=== PATIENT | female | born 1935 | race Caucasian/White ===

== ENCOUNTER 2025-01-27 14:14 | Inpatient (IN) ==
[2025-01-27] MEDS: ASPIRIN CHEWABLE PO STA (14:25)
--- NOTE | 2025-01-27 14:25 | ED.PDOC ---
General [facility] ED Provider: Dr. GRACE SAWANT MD Chief Complaint: Shortness of Air Stated Complaint: Patient presents to ER from PCP clinic accompanied by her granddaughter complaining of worsening shortness of breath and right-sided chest pain. Reports onset was earlier today. States that she was sitting in the waiting room of PCP clinic when she felt a sudden hot flash. Says that she felt like her heart was fluttering and having right sided chest/shoulder pain. Said this made it difficult to breathe. Patient's granddaughter said that she was seen by PCP who immediately told her to go to ER for further workup. Of note, patient has a history of A-fib for which she takes Eliquis 2.5 twice daily she also has a PPM. However she recently moved to the area from [place] to be closer to family. Time Seen by Provider: 01/27/25 14:21 Mode of Arrival: Walk-In Information Source: Patient and Family (Patient's granddaughter) Exam Limitations: No limitations Nursing and Triage Documentation Reviewed and Agree: Yes Opioid Naive vs. Tolerant What is Opioid Naive?: *Opioid Naive implies the patient is not already taking opioids or not chronically receiving opioids on a daily basis. *PRN dosing is not "usually" associated with tolerance. *Patients are at higher risk of over-sedation and aspiration. What is Opioid Tolerant?: *Opioid Tolerance implies less than the expected response to an opioid. *Acquired tolerance is defined by the patient taking 60mg of oral morphine daily (or equianalgesic dose of another opioid) for 1 week or more. *Often associated with chronic pain. *May take more than usual dose to achieve desired pain control. Review of Systems Review Of Systems Constitutional: Reports No symptoms All Other Systems: Reviewed and Negative (Except for those listed in the HPI above.) [facility] Medical History Pacemaker Z95.0 - Presence of cardiac pacemaker (ICD-10) Hypertension I10 - Essential (primary) hypertension (ICD-10) A-fib I48.91 - Unspecified atrial fibrillation (ICD-10) Family History Other No known health problems Social History Smoking and tobacco status: Never smoker Alcohol intake: never Surgical History History of hysterectomy Z90.710 - Acquired absence of both cervix and uterus (ICD-10) History of hip replacement Z96.649 - Presence of unspecified artificial hip joint (ICD-10) Physical Exam Physical Exam Appearance: Reports Well-appearing, No pain distress and Well-nourished Ill-appearing: None Pain Distress: None Eyes: Reports KIRILL and EOMI ENT: Reports Ears normal and Nose normal Neck: Supple Respiratory: Reports Airway patent, Breath sounds equal, Breath sounds diminished and Respirations nonlabored Cardiovascular: Reports RRR, Pulses normal, No rub and No murmur GI/: Reports Soft and Nontender Musculoskeletal: Reports Normal strength, ROM intact and Other (Tenderness to palpation of right anterior glenohumeral joint line.) Skin: Reports Warm, Dry and Normal color Neurological: Reports Sensation intact, Motor intact, Alert and Oriented Psychiatric: Reports Affect appropriate and Mood appropriate Interpretation EKG Interpretation EKG Interpretation By: ED Physician Time of EKG #1: 14:20 Rate: Tachy Rhythm: Other (A flutter) [place]: Left Interpretation: A flutter with variable AV block, LAD, no STEMI Radiology Interpretation Radiology Interpretation By: ED Physician Radiology Results: Negative Exam Interpreted: CXR Xray Comments: No acute cardiopulmonary process interpreted by me. Course Course 01/27/25 14:40 01/27/25 14:43 Orders, Labs, Meds: Lab Review 01/27/25 01/27/25 01/27/25 01:00 14:24 14:40 WBC 6.24 RBC 4.31 Hgb 12.9 Hct 43.1 MCV 100.0 H MCH 29.9 MCHC 29.9 L RDW Coeff of Lloyd 15.4 H Plt Count 216 Immature Gran % (Auto) 0.3 Neut % (Auto) 59.5 Lymph % (Auto) 29.6 Sunflower % (Auto) 7.2 Eos % (Auto) 2.6 Baso % (Auto) 0.8 Neut # (Auto) 3.7 Lymph # (Auto) 1.9 Sunflower # (Auto) 0.5 Eos # (Auto) 0.2 Baso # (Auto) 0.1 Immature Gran # (Auto) 0.0 Sodium Potassium Chloride Carbon Dioxide Anion Gap BUN Creatinine Estimated GFR (MDRD) BUN/Creatinine Ratio Glucose Lactic Acid Calcium Total Bilirubin AST ALT Alkaline Phosphatase Troponin I NT-Pro-B Natriuret Pep Total Protein Albumin Globulin Albumin/Globulin Ratio D-Dimer Urine Color Yellow Urine Clarity Clear Urine pH 5.5 Ur Specific Ethridge 1.010 Urine Protein Negative Urine Glucose (UA) Negative Urine Ketones Negative Urine Blood Negative Urine Nitrite Negative Urine Bilirubin Negative Urine Urobilinogen 0.2 Ur Leukocyte Esterase Negative Influ A Molecular Assay Negative by naat Influ B Molecular Assay Negative by naat SARS CoV-2 RNA Rapid FLY Negative 01/27/25 14:43 WBC RBC Hgb Hct MCV MCH MCHC RDW Coeff of Lloyd Plt Count Immature Gran % (Auto) Neut % (Auto) Lymph % (Auto) Sunflower % (Auto) Eos % (Auto) Baso % (Auto) Neut # (Auto) Lymph # (Auto) Sunflower # (Auto) Eos # (Auto) Baso # (Auto) Immature Gran # (Auto) Sodium 139.9 Potassium 4.14 Chloride 106.6 Carbon Dioxide 13.7 L Anion Gap 23.74 BUN 22.5 H Creatinine 1.12 Estimated GFR (MDRD) 46.00 BUN/Creatinine Ratio 20.08 Glucose 91.9 Lactic Acid 2.06 Calcium 9.54 Total Bilirubin 1.24 AST 26.0 ALT 15.7 Alkaline Phosphatase 96.7 Troponin I < 0.012 NT-Pro-B Natriuret Pep 2420 H Total Protein 7.21 Albumin 4.02 Globulin 3.19 Albumin/Globulin Ratio 1.26 D-Dimer 1230.44 H Urine Color Urine Clarity Urine pH Ur Specific [place]ridge Urine Protein Urine Glucose (UA) Urine Ketones Urine Blood Urine Nitrite Urine Bilirubin Urine Urobilinogen Ur Leukocyte Esterase Influ A Molecular Assay Influ B Molecular Assay SARS CoV-2 RNA Rapid FLY Orders Category Date Time Status ADMIT OBSERVATION [PLACE PATIENT OBSERVATION] .TO ADMISSION 01/27/25 17:52 Active MEDSURG (MONITORED BED) EKG-(ED ONLY) Stat CARDIO 01/27/25 14:21 Completed NPO REMINDER: IMAGING ONCE CARE 01/27/25 15:39 Completed TELEMETRY MONITORING TELE CARE 01/27/25 17:52 Active ED APPLY O2 .ONCE EMERGENCY 01/27/25 14:21 Active ED TRANSIT DRIVER APPLIED .ONCE EMERGENCY 01/27/25 14:21 Active BLOOD CULTURE Stat LAB 01/27/25 15:08 Received CBC W/ AUTO DIFF Stat LAB 01/27/25 14:40 Completed COMPREHENSIVE METABOLIC PANEL Stat LAB 01/27/25 14:43 Completed D-DIMER Stat LAB 01/27/25 14:43 Completed FLU A/B MOLECULAR Stat LAB 01/27/25 14:24 Completed LACTIC ACID Stat LAB 01/27/25 14:43 Completed NT-PROBNP(ED) Stat LAB 01/27/25 14:43 Completed SARS COV-2 RNA RAPID FLY Stat LAB 01/27/25 14:24 Completed TROPONIN I Stat LAB 01/27/25 14:43 Completed URINALYSIS C & S IF INDICATED Stat LAB 01/27/25 01:00 Completed Acetaminophen Meds 01/27/25 15:06 Discontinued 1,000 mg in 100 ml IV ONCE Aspirin [Aspirin Chewable] Meds 01/27/25 14:20 Discontinued 324 mg PO ONCE STA Iodixanol [Visipaque 320 mg/ml 100Ml] Meds 01/27/25 16:08 Discontinued 100 ml IVP ONCE ONE Morphine Sulfate [Morphine 2 mg/ml Syringe] Meds 01/27/25 15:11 Discontinued 2 mg IVP ONCE ONE Sodium Chloride 0.9% [Sodium Chloride] 1,000 ml Meds 01/27/25 14:21 Discontinued IV BOLUS CHEST, 1V AP ONLY Stat RADS 01/27/25 14:21 Completed CTA CHEST PE PROTOCOL Stat RADS 01/27/25 15:39 Completed Medications Generic Name Dose Route Start Last Admin Trade Name Freq PRN Reason Stop Dose Admin Acetaminophen 650 mg 01/27/25 19:42 Acetaminophen 325 Mg Tablet PO Q4H PRN Mild Pain Apixaban 2.5 mg 01/27/25 21:50 01/27/25 22:21 Apixaban 5 Mg Tab PO 2.5 mg BID INDIRA Administration Dronedarone 400 mg 01/28/25 09:00 Dronedarone Hydrochloride 400 Mg Tablet PO BID INDIRA Furosemide 20 mg 01/27/25 20:00 01/27/25 20:28 Furosemide Inj 20 Mg/2 Ml Vial IVP 20 mg Q8H INDIRA Administration Pantoprazole Sodium 40 mg 01/28/25 09:00 Pantoprazole Sodium 40 Mg Tablet.Dr GREENE QAM INDIRA Sodium Chloride 1 syr 01/27/25 21:00 01/27/25 20:28 0.9% Sodium Chloride 10 Ml Disp.Syrin IVF 1 syr Q8HR INDIRA Administration Venlafaxine HCl 37.5 mg 01/28/25 09:00 Venlafaxine Hcl 37.5 Mg Cap.Er.24h PO DAILY INDIRA Discontinued Medications Generic Name Dose Route Start Last Admin Trade Name Darrynq PRN Reason Stop Dose Admin Aspirin 324 mg 01/27/25 14:20 01/27/25 14:25 Aspirin 81 Mg Tab.Chew PO 01/27/25 14:21 324 mg ONCE STA Administration Sodium Chloride 1,000 mls @ 500 mls/hr 01/27/25 14:21 01/27/25 16:30 Sodium Chloride IV 01/27/25 16:20 Infused BOLUS ONE Infusion Acetaminophen 1,000 mg in 100 mls @ 400 mls/hr 01/27/25 15:06 01/27/25 15:12 Acetaminophen IV 01/27/25 15:20 400 mls/hr ONCE ONE Administration Iodixanol 100 ml 01/27/25 16:08 01/27/25 16:09 Iodixanol 320 Mg/Ml 100ml IVP 01/27/25 16:09 100 ml ONCE ONE Administration Morphine Sulfate 2 mg 01/27/25 15:11 01/27/25 15:15 Morphine Sulfate 2 Mg/Ml Syringe IVP 01/27/25 15:12 2 [place] [address] Diagnostic Imaging Diagnostic Imaging Report : [id number] Signed Patient: NAKUL MONTGOMERY Acct:[id number] Medical Record: [id number] : 1935 Loc: ED Room/Bed: Age/Sex: 89 / F ADM Status: REG ER Date of Service: 01/27/25 Ordering Physician: GRACE SAWANT MD Procedure(s): CHEST, 1V AP ONLY Report Number(s): [id number] Accession Number(s): [id number] cc: GRACE SAWANT MD EXAM: CHEST RADIOGRAPH (1 VIEW) TECHNIQUE: Frontal Chest Radiograph. HISTORY: Chest pain. COMPARISON: None FINDINGS: Lines, Tubes, Devices: Left-sided dual chamber pacemaker. Thoracic spinal cord stimulator Lungs and Pleura: No focal consolidation. No pleural effusion. No pneumothorax. No pulmonary edema. Cardiomediastinum: Normal cardiomediastinal silhouette. Moderate aortic calcifications. Bones/Soft Tissues: Multiple remote left rib fractures. No soft tissue abnormality. Upper Abdomen: Within normal limits. IMPRESSION: No acute radiographic abnormality. Dictated By: ANDREA GREENE DO Signed By: ANDREA GREENE DO Dictated Date/Time: 01/27/255 Transcribed Date/Time: 01/27/25 1455 Signed Date/Time: 01/27/[address] Report : [id number] Signed Patient: NAKUL MONTGOMERY Acct:[id number] Medical Record: [id number] : 1935 Loc: ED Room/Bed: Age/Sex: 89 / F ADM Status: REG ER Date of Service: 01/27/25 Ordering Physician: GRACE SAWANT MD Procedure(s): CTA CHEST PE PROTOCOL Report Number(s): [id number] Accession Number(s): [id number] cc: GRACE SAWANT MD EXAM: CHEST CTA WITH CONTRAST (PULMONARY ARTERY) HISTORY: Chest pain and shortness of breath. TECHNIQUE: CTA acquisition of the chest from the thoracic inlet to the upper abdomen following IV contrast administration timed to filling of the pulmonary artery. 3D/MIP/VR images were utilized. CT Dose Reduction Techniques Employed: Yes. IV Contrast: Administered. COMPARISON: None. FINDINGS: Pulmonary Embolism: Diagnostic quality: Adequate. Central (Main/Lobar/Interlobar): No embolus. Peripheral (Segmental/Subsegmental): No embolus. Right ventricle/Left ventricle ratio: Normal. Lines, Tubes, Devices: None. Lung Parenchyma and Airways: Central airways are patent without endobronchial lesion. Mild bronchiectasis. Course interstitial markings in the lower lobes consistent with scarring. No suspicious pulmonary nodule. Mild scattered groundglass densities. Pleural Space: No pleural effusion or thickening. No pneumothorax. Mediastinum and Maru: Thyroid gland is normal. No lymphadenopathy. Heart and Pericardium: There is no pericardial effusion or thickening. The heart is mildly enlarged. Vessels: The thoracic aorta is of normal caliber. The pulmonary trunk is enlarged measuring 3.7 cm. Heavy atherosclerotic vascular disease. Tortuosity. Bones: There is no fracture or lytic lesion. [id number]-[id number] spondylosis and degenerative disc disease of the visualized lumbar spine. Spinal stimulation device in place. Mild levoscoliosis of the thoracic spine. Hemangioma of L3. Mild superior endplate central compression of L1. Soft Tissues: Spinal stimulation device battery pack in the left buttock soft tissues. Upper Abdomen: Multiple bilateral renal cortical cysts. Reflux of contrast into the inferior vena cava and hepatic veins. IMPRESSION: 1. Normal CT pulmonary angiogram with no evidence of pulmonary artery embolism. 2. Coarse interstitial markings in the lower lobes consistent with scarring. Mild scattered groundglass densities and bronchiectasis. 3. The pulmonary trunk is enlarged consistent with pulmonary hypertension. There is reflux of contrast into the inferior vena cava pulmonary veins consistent with right heart failure. 4. Moderate spondylosis and degenerative disc disease. 5. Renal cortical cysts. All CT scans are performed using dose optimization techniques as appropriate to the performed exam and include at least one of the following: Automated exposure control, adjustment of the mA and/or kV according to size, and the use of iterative reconstruction technique. Dictated By: ANA MARIA CISNEROS MD Signed By: ANA MARIA CISNEROS MD Dictated Date/Time: 01/27/252 Transcribed Date/Time: 01/27/25 165 Signed Date/Time: 01/27/25 1715 Vital Signs: Temp Pulse Resp BP Pulse Ox 01/27/25 14:22 98.2 F 136 H 20 133/78 93 L 17:30 - Spoke with on-call hospitalist (Maksim Arroyo NP) regarding patient's status and current workup and management for CHF exacerbation. Reviewed remarkable labs of pro BNP 2420, d-dimer [address] achest PE protocol remarkable for signs of right heart failure/pulmonary hypertension. Agreed to accept patient for further workup and management. Discharge Plan Discharge Patient Disposition: PLACED OBSERVATION Discharge Problem: CHF exacerbation Did you review [place] [employer] for ALL controlled substances?: Not Applicable ED Provider: GRACE SAWANT Condition: Stable
[2025-01-27] MEDS: SODIUM CHLORIDE 1,000 ML IV ONE (14:26)
[2025-01-27 14:50] LABS: IMMATURE GRANULOCYTE # (AUTO) 0.0 (0.0-1.0); IMMATURE GRANULOCYTE % (AUTO) 0.3 % (0.0-5.0); RDW COEFFICIENT OF VARIATION 15.4 % (11.6-14.8)
--- NOTE | 2025-01-27 15:01 | DI ---
EXAM: CHEST RADIOGRAPH (1 VIEW) TECHNIQUE: Frontal Chest Radiograph. HISTORY: Chest pain. COMPARISON: None FINDINGS: Lines, Tubes, Devices: Left-sided dual chamber pacemaker. Thoracic spinal cord stimulator Lungs and Pleura: No focal consolidation. No pleural effusion. No pneumothorax. No pulmonary edema. Cardiomediastinum: Normal cardiomediastinal silhouette. Moderate aortic calcifications. Bones/Soft Tissues: Multiple remote left rib fractures. No soft tissue abnormality. Upper Abdomen: Within normal limits. IMPRESSION: No acute radiographic abnormality.
[2025-01-27 15:03] LABS: CREATININE 1.12 mg/dL (0.60-1.30)
[2025-01-27 15:08] LABS: MOLECULAR FLU A NEGATIVE BY NAAT (NEGATIVE); MOLECULAR FLU B NEGATIVE BY NAAT (NEGATIVE); SARS COV-2 RNA RAPID NAAT NEGATIVE (NEGATIVE)
[2025-01-27] MEDS: ACETAMINOPHEN 1,000 MG/100 ML BAG IV ONE (15:12)
[2025-01-27] MEDS: MORPHINE 2 MG/ML SYRINGE IVP ONE (15:15)
[2025-01-27] MEDS: VISIPAQUE 320 MG/ML 100ML IVP ONE (16:09)
--- NOTE | 2025-01-27 17:15 | CT ---
EXAM: CHEST CTA WITH CONTRAST (PULMONARY ARTERY) HISTORY: Chest pain and shortness of breath. TECHNIQUE: CTA acquisition of the chest from the thoracic inlet to the upper abdomen following IV contrast administration timed to filling of the pulmonary artery. 3D/MIP/VR images were utilized. CT Dose Reduction Techniques Employed: Yes. IV Contrast: Administered. COMPARISON: None. FINDINGS: Pulmonary Embolism: Diagnostic quality: Adequate. Central (Main/Lobar/Interlobar): No embolus. Peripheral (Segmental/Subsegmental): No embolus. Right ventricle/Left ventricle ratio: Normal. Lines, Tubes, Devices: None. Lung Parenchyma and Airways: Central airways are patent without endobronchial lesion. Mild bronchiectasis. Course interstitial markings in the lower lobes consistent with scarring. No suspicious pulmonary nodule. Mild scattered groundglass densities. Pleural Space: No pleural effusion or thickening. No pneumothorax. Mediastinum and Maru: Thyroid gland is normal. No lymphadenopathy. Heart and Pericardium: There is no pericardial effusion or thickening. The heart is mildly enlarged. Vessels: The thoracic aorta is of normal caliber. The pulmonary trunk is enlarged measuring 3.7 cm. Heavy atherosclerotic vascular disease. Tortuosity. Bones: There is no fracture or lytic lesion. Flzc-el-[id number] spondylosis and degenerative disc disease of the visualized lumbar spine. Spinal stimulation device in place. Mild levoscoliosis of the thoracic spine. Hemangioma of L3. Mild superior endplate central compression of L1. Soft Tissues: Spinal stimulation device battery pack in the left buttock soft tissues. Upper Abdomen: Multiple bilateral renal cortical cysts. Reflux of contrast into the inferior vena cava and hepatic veins. IMPRESSION: 1. Normal CT pulmonary angiogram with no evidence of pulmonary artery embolism. 2. Coarse interstitial markings in the lower lobes consistent with scarring. Mild scattered groundglass densities and bronchiectasis. 3. The pulmonary trunk is enlarged consistent with pulmonary hypertension. There is reflux of contrast into the inferior vena cava pulmonary veins consistent with right heart failure. 4. Moderate spondylosis and degenerative disc disease. 5. Renal cortical cysts. All CT scans are performed using dose optimization techniques as appropriate to the performed exam and include at least one of the following: Automated exposure control, adjustment of the mA and/or kV according to size, and the use of iterative reconstruction technique.
[2025-01-27] MEDS ORDERED: TYLENOL PO PRN (19:42)
[2025-01-27] MEDS: LASIX IVP SCH (20:28)
[2025-01-27 20:40] VITALS: BMI 19.6
[2025-01-27] MEDS: ELIQUIS PO SCH (22:21)
[2025-01-28 01:18] LABS: GLUCOSE, URINE (UA) Negative (NEGATIVE); LEUKOCYTE ESTERASE ,URINE Negative (NEGATIVE); URINE, BLOOD Negative (NEGATIVE)
[2025-01-28 05:33] LABS: IMMATURE GRANULOCYTE # (AUTO) 0.0 (0.0-1.0); IMMATURE GRANULOCYTE % (AUTO) 0.2 % (0.0-5.0); RDW COEFFICIENT OF VARIATION 15.3 % (11.6-14.8)
[2025-01-28 05:45] LABS: CREATININE 1.23 mg/dL (0.60-1.30)
[2025-01-28] MEDS: PROTONIX PO SCH (08:21)
[2025-01-28] MEDS: EFFEXOR XR PO SCH (08:22)
[2025-01-28] MEDS: LOPRESSOR IVP ONE ×2 (08:37→20:00)
[2025-01-28] MEDS: MULTAQ PO SCH (09:50)
[2025-01-28] MEDS: TOPROL XL PO SCH (10:08)
--- NOTE | 2025-01-28 10:59 | PCM ---
Date of Service Date Seen by Provider: 01/28/25 Time Seen by Provider: 09:00 Admit Day/Time Admission Date: 01/27/25 Reason for Admission Chief Complaint: HEART FAILURE EXACERBATION Hospital Provider Hospital [facility] Primary Care Physician: ESTEPHANIE MERCHANT History of Present Illness History of Present Illness: 89 yo female with pmh of combined CHF, afib, htn, and HOCM presented to the ER following a fall. Patient states she has been having multiple falls at home and does not recall when they happen. Denies any injury but is sore this am. Patient is new to the area from [place] and was at Dr. Merchant's office to be seen for new patient visit and was sent to the ER. Patient was found to have HR of 136. BNP elevated at 2420 (unsure of baseline). D-dimer elevated. CTA obtained showing right sided heart failure. Denies any sob or edema at home. Granddaughter who is her caregiver at this time is an RN and reports that she only takes lasix as needed and has not taken it for quite some time. Daily weights have been normal. Of note, patient was admitted to [facility] on 01/03/25 for syncope. Found to have KETURAH and orthostasis. Metoprolol was stopped during that visit and patient was also started on midodrine due to continued orthostasis despite hydration. Patient was then discharged to [facility] for rehab. Granddaughter reports she did not receive the therapy she needed and continues to be weak at this time thus causing the fall and repeat admission in less than a month. This am patient's HR jumped to 130s-150s in Afib RVR. Patient became symptomatic with dizziness and chest pain. She was given a dose of lopressor 2.5 mg IVP and HR as normalized. She typically takes multaq but this facility does not carry it and am unsure when her last dose was. Started metoprolol succinate 25 mg due to lack of home medication here. Case Discussed With Case Discussed With: Patient's case was discussed with the ER Physicians, Dr. Workman. [facility] Medical History (Updated 01/28/25 @ 11:37 by MICHAEL AYON) CVA (cerebral vascular accident) I63.9 - Cerebral infarction, unspecified (ICD-10) Chronic combined systolic (congestive) and diastolic (congestive) heart failure I50.42 - Chronic combined systolic (congestive) and diastolic (congestive) heart failure (ICD-10) GERD (gastroesophageal reflux disease) K21.9 - Gastro-esophageal reflux disease without esophagitis (ICD-10) ASCVD (arteriosclerotic cardiovascular disease) I25.10 - Atherosclerotic heart disease of [place] coronary artery without angina pectoris (ICD-10) HOCM (hypertrophic obstructive cardiomyopathy) I42.1 - Obstructive hypertrophic cardiomyopathy (ICD-10) Pacemaker Z95.0 - Presence of cardiac pacemaker (ICD-10) Hypertension I10 - Essential (primary) hypertension (ICD-10) A-fib I48.91 - Unspecified atrial fibrillation (ICD-10) Surgical History History of hysterectomy Z90.710 - Acquired absence of both cervix and uterus (ICD-10) History of hip replacement Z96.649 - Presence of unspecified artificial hip joint (ICD-10) Family History Other No known health problems Social History Smoking and tobacco status: Never smoker Alcohol intake: never Allergies Allergies Allergy/AdvReac Type Severity Reaction Status Date / Time No Known Allergies Allergy Verified 01/02/25 05:11 Current Medications Home Medications Acetaminophen (Acetaminophen 325 Mg Tablet) 650 mg PO Q4H PRN PRN Reason: Mild Pain Apixaban (Apixaban 5 Mg Tab) 2.5 mg PO BID [facility] Last Admin: 01/28/25 08:21 Dose: 2.5 mg Dronedarone (Dronedarone Hydrochloride 400 Mg Tablet) 400 mg PO BID [facility] On Hold: 01/28/25 09:44 Last Admin: 01/28/25 09:50 Dose: Not Given Metoprolol Succinate (Metoprolol Succinate 25 Mg Tab.Er.24h) 25 mg PO DAILY [facility] Last Admin: 01/28/25 10:08 Dose: 25 mg Pantoprazole Sodium (Pantoprazole Sodium 40 Mg Tablet.Dr) 40 mg PO QDAC2 [facility] Last Admin: 01/28/25 08:21 Dose: 40 mg Sodium Chloride (0.9% Sodium Chloride 10 Ml Disp.Syrin) 1 syr IVF Q8HR [facility] Last Admin: 01/28/25 04:43 Dose: 1 syr Venlafaxine HCl (Venlafaxine Hcl 37.5 Mg Cap.Er.24h) 37.5 mg PO DAILY [facility] Last Admin: 01/28/25 08:22 Dose: 37.5 mg apixaban 5 mg tablet (Eliquis) 2.5 mg PO BID 01/02/25 [History Confirmed 01/27/25] Multaq 400 mg PO BID 01/27/25 [History Confirmed 01/27/25] pantoprazole 40 mg tablet,delayed release 40 mg PO QAM 01/27/25 [History Confirmed 01/27/25] venlafaxine 37.5 mg capsule,extended release 24 hr 37.5 mg PO DAILY 01/27/25 [History Confirmed 01/27/25] acetaminophen 325 mg capsule 650 mg PO QID PRN fever or pain 01/28/25 [History Confirmed 01/28/25] cholecalciferol (vitamin D3) 25 mcg (1,000 unit) capsule 25 mcg PO DAILY 07/24 [History Confirmed 01/28/25] furosemide 40 mg tablet (Lasix) 20 mg PO DAILY PRN edema 01/28/25 [History Confirmed 01/28/25] metoprolol tartrate 25 mg tablet 12.5 mg PO BID 01/28/25 [History Confirmed 01/28/25] midodrine 5 mg tablet 5 mg PO TID 01/28/25 [History Confirmed 01/28/25] sodium bicarbonate 650 mg tablet 650 mg PO TID 01/28/25 [History Confirmed 01/28/25] Opioid Naive vs. Tolerant Does Patient Take Opioids?: No Is Patient Opioid Naive?: Yes What is Opioid Naive?: *Opioid Naive implies the patient is not already taking opioids or not chronically receiving opioids on a daily basis. *PRN dosing is not "usually" associated with tolerance. *Patients are at higher risk of over-sedation and aspiration. Is Patient Opioid Tolerant?: No What is Opioid Tolerant?: *Opioid Tolerance implies less than the expected response to an opioid. *Acquired tolerance is defined by the patient taking 60mg of oral morphine daily (or equianalgesic dose of another opioid) for 1 week or more. *Often associated with chronic pain. *May take more than usual dose to achieve desired pain control. Review of Systems Constitutional: Reports No symptoms Head: Reports Normocephalic Eyes: Reports No symptoms Ears: Reports No symptoms Nose: Reports No symptoms Mouth: Reports No symptoms Throat: Reports No symptoms Cardiovascular: Reports No symptoms and Irregular Heartbeat; Denies Chest pain or Chest Pressure Respiratory: Reports No symptoms; Denies Shortness of air Gastrointestinal: Reports No symptoms Genitourinary: Reports No Symptoms Musculoskeletal: Reports No symptoms Endocrine: Reports No symptoms Hematology: Reports No symptoms Immunology: Reports No symptoms Neurological: Reports Dizziness and Syncope Psychiatric: Reports No symptoms Physical examination Most Recent Vital Signs: Most Recent Vital Signs Temperature 97.5 F L 01/28/25 10:00 Temperature Source Temporal Artery Scan 01/28/25 10:00 Temperature Source Infrared 01/27/25 14:22 Pulse Rate 93 01/28/25 10:00 Respiratory Rate 14 01/28/25 10:00 Blood Pressure 112/75 01/28/25 10:00 Blood Pressure Mean 87 01/28/25 10:00 Blood Pressure Left Arm 153/95 01/27/25 20:13 Blood Pressure Location Right Arm 01/28/25 10:00 Blood Pressure Position Supine 01/28/25 10:00 O2 Sat by Pulse Oximetry 95 01/28/25 10:00 Oxygen Delivery Method Room Air 01/28/25 10:00 Height 5 ft 4 in 01/27/25 20:13 Weight 51.6 kg 01/28/25 05:31 Telemetry Type Remote Telemetry 01/28/25 07:00 Telemetry Monitoring Continues 01/28/25 07:00 Irregular Telemetry Rate (Approximate) 100-110 BPM 01/28/25 07:00 Telemetry Heart Rate 100 01/28/25 07:00 EKG QRS Interval 0.07 01/28/25 07:00 Telemetry Strip Reading A-fib 01/28/25 07:00 Appearance: Positive No Apparent Distress, Alert and Oriented x3 and Thin Skin: Positive Warm and Good Turgor HEENT: Positive Normocephalic and PERRLA Neck: Positive Supple and Midline Trachea Chest/Lungs: Positive Symmetrical With Equal Breath Sounds, Clear to Auscultation Bilaterally and Good Air Movement all 4 Lung Bryant; Negative Rales, Rhonci or Wheezes Heart: Positive Pulses Normal, Irregular Rhythm and Tachycardia GI/: Positive Soft, Nontender, Bowel Sounds Normal, No Distention and No Organomegaly Musculoskeletal: Positive Other (reddened area with small abrasions to R lower leg, splotchy areas, blanchable, negative julia's sign) and Not Examined Extremities: Positive Intact Peripheral Pulses, Stable Joints Without Laxity and Good ROM in All Joints Neurological: Positive Sensation Intact, Motor intact, Reflexes Intact, Alert, Oriented and Other (generalized weakness, debility) Labs This Visit Labs This Visit: Labs This Visit 01/27/25 01/27/25 01/27/25 01:00 14:24 14:40 WBC 6.24 RBC 4.31 Hgb 12.9 Hct 43.1 MCV 100.0 H MCH 29.9 MCHC 29.9 L RDW Coeff of Lloyd 15.4 H Plt Count 216 Immature Gran % (Auto) 0.3 Neut % (Auto) 59.5 Lymph % (Auto) 29.6 [place] % (Auto) 7.2 Eos % (Auto) 2.6 Baso % (Auto) 0.8 Neut # (Auto) 3.7 Lymph # (Auto) 1.9 [place] # (Auto) 0.5 Eos # (Auto) 0.2 Baso # (Auto) 0.1 Immature Gran # (Auto) 0.0 Sodium Potassium Chloride Carbon Dioxide Anion Gap BUN Creatinine Estimated GFR (MDRD) BUN/Creatinine Ratio Glucose Lactic Acid Calcium Total Bilirubin AST ALT Alkaline Phosphatase Troponin I NT-Pro-B Natriuret Pep Total Protein Albumin Globulin Albumin/Globulin Ratio D-Dimer Urine Color Yellow Urine Clarity Clear Urine pH 5.5 Ur Specific [place] 1.010 Urine Protein Negative Urine Glucose (UA) Negative Urine Ketones Negative Urine Blood Negative Urine Nitrite Negative Urine Bilirubin Negative Urine Urobilinogen 0.2 Ur Leukocyte Esterase Negative Influ A Molecular Assay Negative by naat Influ B Molecular Assay Negative by naat SARS CoV-2 RNA Rapid FLY Negative 01/27/25 01/28/25 14:43 05:26 WBC 9.05 RBC 4.77 Hgb 14.2 Hct 45.8 MCV 96.0 MCH 29.8 MCHC 31.0 L RDW Coeff of Lloyd 15.3 H Plt Count 239 Immature Gran % (Auto) 0.2 Neut % (Auto) 72.2 Lymph % (Auto) 17.9 [place] % (Auto) 7.2 Eos % (Auto) 2.1 Baso % (Auto) 0.4 Neut # (Auto) 6.5 Lymph # (Auto) 1.6 [place] # (Auto) 0.7 Eos # (Auto) 0.2 Baso # (Auto) 0.0 Immature Gran # (Auto) 0.0 Sodium 139.9 138.3 Potassium 4.14 3.93 Chloride 106.6 99.6 Carbon Dioxide 13.7 L 24.1 D Anion Gap 23.74 18.53 BUN 22.5 H 24.3 H Creatinine 1.12 1.23 Estimated GFR (MDRD) 46.00 41.00 BUN/Creatinine Ratio 20.08 19.75 Glucose 91.9 90.8 Lactic Acid 2.06 Calcium 9.54 9.42 Total Bilirubin 1.24 1.04 AST 26.0 27.4 ALT 15.7 18.9 Alkaline Phosphatase 96.7 96.7 Troponin I < 0.012 NT-Pro-B Natriuret Pep 2420 H Total Protein 7.21 7.47 Albumin 4.02 4.26 Globulin 3.19 3.21 Albumin/Globulin Ratio 1.26 1.32 D-Dimer 1230.44 H Urine Color Urine Clarity Urine pH Ur Specific [place] Urine Protein Urine Glucose (UA) Urine Ketones Urine Blood Urine Nitrite Urine Bilirubin Urine Urobilinogen Ur Leukocyte Esterase Influ A Molecular Assay Influ B Molecular Assay SARS CoV-2 RNA Rapid FLY Imaging Imaging: EXAM: CHEST CTA WITH CONTRAST (PULMONARY ARTERY) HISTORY: Chest pain and shortness of breath. TECHNIQUE: CTA acquisition of the chest from the thoracic inlet to the upper abdomen following IV contrast administration timed to filling of the pulmonary artery. 3D/MIP/VR images were utilized. CT Dose Reduction Techniques Employed: Yes. IV Contrast: Administered. COMPARISON: None. FINDINGS: Pulmonary Embolism: Diagnostic quality: Adequate. Central (Main/Lobar/Interlobar): No embolus. Peripheral (Segmental/Subsegmental): No embolus. Right ventricle/Left ventricle ratio: Normal. Lines, Tubes, Devices: None. Lung Parenchyma and Airways: Central airways are patent without endobronchial lesion. Mild bronchiectasis. Course interstitial markings in the lower lobes consistent with scarring. No suspicious pulmonary nodule. Mild scattered groundglass densities. Pleural Space: No pleural effusion or thickening. No pneumothorax. Mediastinum and Maru: Thyroid gland is normal. No lymphadenopathy. Heart and Pericardium: There is no pericardial effusion or thickening. The heart is mildly enlarged. Vessels: The thoracic aorta is of normal caliber. The pulmonary trunk is enlarged measuring 3.7 cm. Heavy atherosclerotic vascular disease. Tortuosity. Bones: There is no fracture or lytic lesion. Hpat-[id number] spondylosis and degenerative disc disease of the visualized lumbar spine. Spinal stimulation device in place. Mild levoscoliosis of the thoracic spine. Hemangioma of L3. Mild superior endplate central compression of L1. Soft Tissues: Spinal stimulation device battery pack in the left buttock soft tissues. Upper Abdomen: Multiple bilateral renal cortical cysts. Reflux of contrast into the inferior vena cava and hepatic veins. IMPRESSION: 1. Normal CT pulmonary angiogram with no evidence of pulmonary artery embolism. 2. Coarse interstitial markings in the lower lobes consistent with scarring. Mild scattered groundglass densities and bronchiectasis. 3. The pulmonary trunk is enlarged consistent with pulmonary hypertension. There is reflux of contrast into the inferior vena cava pulmonary veins consistent with right heart failure. 4. Moderate spondylosis and degenerative disc disease. 5. Renal cortical cysts. EXAM: CHEST RADIOGRAPH (1 VIEW) TECHNIQUE: Frontal Chest Radiograph. HISTORY: Chest pain. COMPARISON: None FINDINGS: Lines, Tubes, Devices: Left-sided dual chamber pacemaker. Thoracic spinal cord stimulator Lungs and Pleura: No focal consolidation. No pleural effusion. No pneumothorax. No pulmonary edema. Cardiomediastinum: Normal cardiomediastinal silhouette. Moderate aortic calcifications. Bones/Soft Tissues: Multiple remote left rib fractures. No soft tissue abnormality. Upper Abdomen: Within normal limits. IMPRESSION: No acute radiographic abnormality. Review Statement Review Statement: I have independently reviewed and interpreted the labs/EKGs/imaging that were ordered by the ER provider. I have reviewed all outside records that are available currently in our EMR including imaging/notes/labs from previous visits. Plan Plan: 1. Afib RVR - feel that multaq is not controlling afib rvr - holding at this time, start metoprolol succinate 25 mg daily, telemetry 2. Combined CHF - do not feel patient is in exacerbation, appears euvolemic, initially started diuresis based on ER providers description of patient, stopping at this time, I&O, daily weight, last echo 2022 with EF >70% consistent with hyperdynamic systolic function 3. Frequent Falls - feel this is due to uncontrolled afib and resulting in syncope, pt/ot to eval and treat, patient would likely benefit from further rehab due to 2 hospitalizations in less than a month. 4. Syncope - orthostatic vitals Q8H, will restart midodrine if orthostasis present, chilango [place], work-up completed at [facility] on 01/03 negative for other etiology. 5. GERD - chronic, continue home medications 6. CKD stage 3 - stable, continue home medications DVT Prophylaxis: Eliquis Time Spent: Greater than 80 minutes spent with patient, 50% of the time spent with this patient was devoted to counseling and coordination of care. [facility] Plannin minutes spent discussing advance care planning. Disposition: Admit to: Med/Surg Observation Full Code Discussed Plan of Care with Dr. Jodie Stark. Medications Medication Orders: Medications Ordered Category Date Time Status 0.9 % Sodium Chloride [Saline Flush] Meds 01/27/25 21:00 Active 1 syr IVF Q8HR Acetaminophen [Tylenol] Meds 01/27/25 19:42 Active 650 mg PO Q4H PRN Apixaban [Eliquis] Meds 01/27/25 21:50 Active 2.5 mg PO BID Dronedarone Hydrochloride [Multaq] Meds 01/28/25 09:00 Hold 400 mg PO BID Furosemide [Lasix] Meds 01/28/25 13:00 Active 20 mg IVP Q8HR Metoprolol Succinate [Toprol Xl] Meds 01/28/25 09:45 Active 25 mg PO DAILY Pantoprazole Sodium [Protonix] Meds 01/28/25 07:30 Active 40 mg PO QDAC2 Venlafaxine HCl [Effexor Xr] Meds 01/28/25 09:00 Active 37.5 mg PO DAILY
[2025-01-28] MEDS ORDERED: LASIX IVP SCH (13:00)
--- NOTE | 2025-01-28 15:00 | RS.OTINEVL ---
Subjective Patient information Date of Evaluation: 01/28/25 Date of Arrival on Unit: 01/27/25 Admitted From:: Emergency Dept Diagnosis: Heart failure exac., Weakness, PRECAUTIONS: fall risk Usual Living Arrangement: With Others Living Arrangement Comments: lives with son, will be moving to [facility]. Home Environment: Stairs (few) Medical History: CHF Medical History Comments:: Afib, SOA, Dizziness Medications: Refer to chart Subjective Information/ Patient Comments:: "I am short of breath." "I forgot." Level of function Prior to this admission, the patient could do the following:: Independent Selfcare, Independent ADL's, Independent Ambulation and Participated in Social Activities Outside home Abilities prior to this admission: Pt does not drive. Pt reports her son does her finances, and cooks. Current Level of Function: Partially Dependent Current Equipment Used at Home: walker and wheelchair Interventions Objective Patient Orientation: Person, Place, Time and Situation Current Interventions: Telemetry Observation: Pt is I with supine to sit EOB. Pt has full AROM of BUE. Pt is I with sitting to supine. Pt is CGA for sit to stand. Interventions ROM Right Upper Extremity AROM: WFL's Left Upper Extremity AROM: WFL's Strength Right Upper Extremity: Mild Weakness Left Upper Extremity: Mild Weakness Sensation Right Upper Extremity: Intact/Normal Left Upper Extremity: Intact/Normal Balance Sitting Balance Static Sitting Balance: Good Dynamic Sitting Balance: Good Standing Balance Static Standing Balance: Fair Dynamic Standing Balance: Fair ADL Skills Self Feeding Self Feeding: Independent Grooming Grooming: Min Assist Bathing Bathing UE: Min Assist Bathing LE: Max Assist Bathing Set-up: Sitting Dressing Dressing UE: Min Assist Dressing LE: Max Assist Toilet Management Toilet Hygiene: Independent Toilet Clothing Management: CGA Functional Mobility Bed Mobility Scooting: Independent Sit to Supine: Independent Transfers Sit to Stand: Independent Stand Pivot Transfers: CGA Ambulation Weight Bearing Status: FWB Assistive Device Used: Rolling Walker Assistance needed with Ambulation: Min Assist Safety Awareness Safety Awareness: Fair MARTÍN INDEX SCORE: . Additional Treatment Performed Additional units charged ADL: 15 Time with patient Length of Evaluation: 16 Total treatment time: 31 Activities Do you enjoy playing games?: Yes Would you be interested in leaving your room for activities?: Yes Would you enjoy group activities?: Yes Do you have difficulty with your vision?: Yes Patient Education Patient Education: Education of diagnosis Teaching Recipient: Patient Teaching Methods: Discussion Assessment Problem List:: Decreased level of function, Decreased safety/Risk of falls and Pain limits previous level of function Rehab Potential: Good Evaluation Complexity: HISTORY: Medium, EXAM OF BODY SYSTEMS: Medium and CLINICAL DECISION MAKING: Medium Patient's Goal(s): To get stronger and return home. Short Term Goals Goals GOAL 1: Pt to increase toilet transfer to SUP. Goal to be met by: 01/31/25 GOAL 2: Pt to increase BUE strength to 4/5. Goal to be met by: 01/31/25 GOAL 3: Pt to increase dyn. std. bal. to Fair-. Goal to be met by: 01/31/25 GOAL 4: Pt to be I with donning her socks with AD. Goal to be met by: 01/31/25 Cutting Supervisor Goals GOAL 1: Pt to increase BUE strength to 4+/5. Goal to be met by: 02/04/25 GOAL 2: Pt to increase dyn. std. bal. to F+. Goal to be met by: 02/04/25 GOAL 3: Pt to increase I of ADLS to be SUP. Goal to be met by: 02/04/25 Plan Plan of Care: Therapeutic EX, Therapeutic Activity and Self-Care/Home Management Frequency of Treatment: 1-2 X day, as tolerated Duration of Treatment: 1 Week Anticipated Discharge Destination: Home Treatment Diagnosis (ICD 10 Codes): Z74.1 Need for assistance with personal care, R53.1 Weakness Has the Physician been added for Co-signature?: Yes
--- NOTE | 2025-01-28 15:41 | RS.PTINEVL ---
Subjective Patient information Date of Evaluation: 01/28/25 Date of Arrival on Unit: 01/27/25 Admitted From:: Emergency Dept Diagnosis: CHF exacerbation Usual Living Arrangement: With Others Living Arrangement Comments: lives with son, will be moving to [facility]. Home Environment: Stairs (few) and Rail Medical History: Hypertension and CHF Medical History Comments:: Afib, pulmonary HTN LATEX ALLERGY?: No Surgical History: Hip Replacement and Hysterectomy Surgical History Comments:: pacemaker Medications: see chart Subjective Information/ Patient Comments:: pt states that she continues to be a little woozy. Nursing staff performed orthostatic BP checks. Level of function Prior to this admission, the patient could do the following:: Independent Ambulation Abilities prior to this admission: dtr in law assisted in shower when needed, walked short distances with rolling walker. Current Level of Function: Partially Dependent Current Equipment Used at Home: walker and wheelchair Interventions Objective Patient Orientation: Person and Place Current Interventions: Telemetry Observation: pt is oriented to person and place ([place], [place], [facility]) Range of Motion ROM Right Upper Extremity AROM: WFL's Left Upper Extremity AROM: WFL's Right Lower Extremity AROM: WFL's Left Lower Extremity AROM: WFL's Muscle Strength Muscle Strength Right Upper Extremity: Mild Weakness (grossly 4-/5) Left Upper Extremity: Mild Weakness (grossly 4-/5) Right Lower Extremity: Mild Weakness (hip flex 4-/5 knee flex 4-/5, ext 4/5, ankle 4/5) Left Lower Extremity: Mild Weakness (hip flex 4-/5 knee flex 4-/5, ext 4/5, ankle 4/5) Sensation Sensation Right Upper Extremity: Intact/Normal Left Upper Extremity: Intact/Normal Right Lower Extremity: Intact/Normal Left Lower Extremity: Intact/Normal Palpation Palpation Findings: None/Normal Balance Sitting Balance and Reactions Static Sitting Balance: Fair Dynamic Sitting Balance: Poor Standing Balance and Reactions Static Standing Balance: Poor Dynamic Standing Balance: Poor Standing Equilibrium Reactions: Delayed Right and Absent Left Standing Protective Reactions: Delayed Right and Absent Left Comments Balance Assessment Comments: pt with 1 episode of LOB due to dizziness required min assist to prevent fall. Functional Mobility Bed Mobility Rolling R/L: Supervision Supine to Sit: Supervision Sit to Supine: Supervision Transfers Sit to Stand: CGA Stand to Sit: CGA Stand Pivot Transfers: CGA Safety Awareness Safety Awareness: Poor MARTÍN INDEX SCORE: n/a Ambulation Ambulation Assistive Device Used: Rolling Walker Orthotic/Prosthetic Device: No Distance: 15ft x 2 Assistance needed with Ambulation: CGA Gait Deviations: Forward posture, Short stride and Deviates from path Ambulation Comments: 1 episode of LOB due to dizziness while walking required min assist to prevent fall. Factors Affecting Ambulation: Decreased Balance, Breathing/O2 Saturation, Weakness, Decreased Coordination, Dizziness, Decreased Safety, Cognitive Status and Limited Endurance Treatment time Units charged Gait trainin Time with patient Length of Evaluation: 18 Total treatment time: 31 Patient Education Education Patient Education: Home Exercise Program and Education of Plan of Care Teaching Recipient: Patient Teaching Methods: Discussion Comments: discussion regarding POC Assessment Assessment Problem List:: Decreased level of function, Requires training/education, Decreased safety/Risk of falls, Weakness and Cognitive status limits abilities Rehab Potential: Good Further Therapy Indicated?: Yes Candidate for Swing Bed for Therapy Services?: Feel pt may benefit from swing bed for therapy for strengthening, balance activities to decrease fall risk and improve functional mobility. Evaluation Complexity: HISTORY: Medium, EXAM OF BODY SYSTEMS: Medium, CLINICAL PRESENTATION: Medium and CLINICAL DECISION MAKING: Medium Patient's Goal(s): Get stronger and walk better Short Term Goals GOAL #1: pt independent with rolling and scooting to edge of bed. Goal to be met by: 01/31/25 GOAL #2: Transfer sup to/from sit independently with bedrail Goal to be met by: 01/31/25 GOAL #3: Transfer sit to/from stand CGA to SBA Goal to be met by: 01/31/25 GOAL #4: pt amb 50ft with rwx with CGA with no LOB. Goal to be met by: 01/31/25 GOAL #5: Improve BLE strength 4 to 4+/5 Goal to be met by: 01/31/25 [facility] Goals GOAL #1: pt transfer sit to/from stand SBA Goal to be met by: 02/02/25 GOAL #2: pt amb with rwx functional household distance CGA. Goal to be met by: 02/02/25 GOAL #3: Ascend/descend 2-3 steps with HR with CGA Goal to be met by: 02/02/25 Plan Plan of Care: Therapeutic EX and Therapeutic Activity Other:: gait training Frequency of Treatment: 1-2 X day, as tolerated Duration of Treatment: 5 days Anticipated Discharge Destination: possible swing bed Treatment Diagnosis (ICD 10 Codes): impaired balance R26.81 gait difficulty R26.2 weakness M62.81 h/o falls R29.6 Has the Physician been added for Co-signature?: Yes
[2025-01-28] MEDS: SODIUM BICARBONATE PO SCH (15:52)
[2025-01-28] MEDS: MIDODRINE PO SCH (19:13)
[2025-01-28] MEDS: SODIUM CHLORIDE 500 ML IV ONE (19:50)
[2025-01-28] MEDS ORDERED: MIDODRINE PO SCH (21:00)
[2025-01-29 05:40] LABS: IMMATURE GRANULOCYTE # (AUTO) 0.0 (0.0-1.0); IMMATURE GRANULOCYTE % (AUTO) 0.4 % (0.0-5.0); RDW COEFFICIENT OF VARIATION 15.4 % (11.6-14.8)
[2025-01-29 05:52] LABS: CREATININE 1.31 mg/dL (0.60-1.30)
[2025-01-29] MEDS: TOPROL XL PO SCH (08:18)
[2025-01-29] MEDS: VITAMIN D PO SCH (08:18)
[2025-01-29] MEDS: MIDODRINE PO SCH (08:18)
--- NOTE | 2025-01-29 09:32 | PCM.PROG ---
Date/Time Seen Date Seen by Provider: 01/29/25 Time Seen by Provider: 08:45 Provider Provider: MICHAEL AYON, [facility] Chief Complaint Chief Complaint: HEART FAILURE EXACERBATION Subjective Subjective: Heart rate continues to fluctuate with medication adjustments. Became hypotensive yesterday afternoon with systolic in 80s. HR jumped to 120s. Required 500ml bolus of fluids. Orthostasis present. No further complaints of chest pain. Objective Appearance: Positive No Apparent Distress and Alert and Oriented x3 Chest/Lungs: Positive Symmetrical With Equal Breath Sounds, Clear to Auscultation Bilaterally and Good Air Movement all 4 Lung Bryant; Negative Rales, Rhonci or Wheezes Heart: Positive Pulses Normal and Irregular Rhythm; Negative Tachycardia GI/: Positive Soft, Nontender, Bowel Sounds Normal and No Distention Musculoskeletal: Positive Not Examined Neurological: Positive Sensation Intact, Motor intact, Reflexes Intact, Alert, Oriented and Other (generalized weakness, debility ) Vital Signs Vital Signs: Vital Signs: Last 24 Hours 01/28/25 09:45 01/28/25 10:00 01/28/25 11:00 Temperature 97.5 F L Temperature Source Temporal Artery Scan Pulse Rate 93 Respiratory Rate 14 Blood Pressure 112/75 Blood Pressure Mean 87 Blood Pressure Location Right Arm Blood Pressure Position Supine O2 Sat by Pulse Oximetry 95 Oxygen Delivery Method Room Air Room Air Room Air Weight Telemetry Type Telemetry Monitoring Irregular Telemetry Rate (Approximate) Telemetry Heart Rate EKG QRS Interval Telemetry Strip Reading 01/28/25 12:00 01/28/25 13:00 01/28/25 13:00 Temperature Temperature Source Pulse Rate Respiratory Rate Blood Pressure Blood Pressure Mean Blood Pressure Location Blood Pressure Position O2 Sat by Pulse Oximetry Oxygen Delivery Method Room Air Room Air Weight Telemetry Type Remote Telemetry Telemetry Monitoring Continues Irregular Telemetry Rate (Approximate) 90-100 BPM Telemetry Heart Rate 98 EKG QRS Interval 0.06 Telemetry Strip Reading A- fib with OCC . PVC 01/28/25 14:00 01/28/25 14:00 01/28/25 14:00 Temperature 96.4 F L Temperature Source Temporal Artery Scan Pulse Rate 90 Respiratory Rate 14 Blood Pressure 104/72 109/76 Blood Pressure Mean 87 Blood Pressure Location Right Arm Right Arm Blood Pressure Position Supine O2 Sat by Pulse Oximetry 95 Oxygen Delivery Method Room Air Room Air Weight Telemetry Type Telemetry Monitoring Irregular Telemetry Rate (Approximate) Telemetry Heart Rate EKG QRS Interval Telemetry Strip Reading 01/28/25 14:44 01/28/25 14:45 01/28/25 15:00 Temperature Temperature Source Pulse Rate 78 Respiratory Rate Blood Pressure 119/68 91/55 L Blood Pressure Mean Blood Pressure Location Right Arm Right Arm Blood Pressure Position Sitting Standing O2 Sat by Pulse Oximetry Oxygen Delivery Method Room Air Weight Telemetry Type Telemetry Monitoring Irregular Telemetry Rate (Approximate) Telemetry Heart Rate EKG QRS Interval Telemetry Strip Reading 01/28/25 15:51 01/28/25 15:52 01/28/25 16:00 Temperature Temperature Source Pulse Rate Respiratory Rate Blood Pressure 97/49 L 92/57 L Blood Pressure Mean Blood Pressure Location Right Arm Right Arm Blood Pressure Position Sitting Standing O2 Sat by Pulse Oximetry Oxygen Delivery Method Room Air Weight Telemetry Type Telemetry Monitoring Irregular Telemetry Rate (Approximate) Telemetry Heart Rate EKG QRS Interval Telemetry Strip Reading 01/28/25 16:01 01/28/25 16:01 01/28/25 17:00 Temperature Temperature Source Pulse Rate Respiratory Rate Blood Pressure 97/49 L 92/57 L Blood Pressure Mean Blood Pressure Location Right Arm Right Arm Blood Pressure Position Sitting Standing O2 Sat by Pulse Oximetry Oxygen Delivery Method Room Air Weight Telemetry Type Telemetry Monitoring Irregular Telemetry Rate (Approximate) Telemetry Heart Rate EKG QRS Interval Telemetry Strip Reading 01/28/25 18:00 01/28/25 18:00 01/28/25 18:28 Temperature 97.2 F L Temperature Source Temporal Artery Scan Pulse Rate 84 Respiratory Rate 18 Blood Pressure 83/54 L 118/69 Blood Pressure Mean 63 85 Blood Pressure Location Left Arm Right Arm Blood Pressure Position Sitting Supine O2 Sat by Pulse Oximetry 95 Oxygen Delivery Method Room Air Room Air Room Air Weight Telemetry Type Telemetry Monitoring Irregular Telemetry Rate (Approximate) Telemetry Heart Rate EKG QRS Interval Telemetry Strip Reading 01/28/25 19:00 01/28/25 19:00 01/28/25 19:09 Temperature Temperature Source Pulse Rate 122 H Respiratory Rate Blood Pressure Blood Pressure Mean Blood Pressure Location Blood Pressure Position O2 Sat by Pulse Oximetry Oxygen Delivery Method Room Air Room Air Weight Telemetry Type Remote Telemetry Telemetry Monitoring Continues Irregular Telemetry Rate (Approximate) 90-100 BPM Telemetry Heart Rate 90 EKG QRS Interval 0.10 Telemetry Strip Reading A-FIB 01/28/25 20:00 01/28/25 20:00 01/28/25 20:35 Temperature 97.6 F Temperature Source Temporal Artery Scan Pulse Rate 84 Respiratory Rate 18 Blood Pressure 122/74 Blood Pressure Mean 90 Blood Pressure Location Left Arm Blood Pressure Position Sitting O2 Sat by Pulse Oximetry 95 Oxygen Delivery Method Room Air Room Air Room Air Weight Telemetry Type Telemetry Monitoring Irregular Telemetry Rate (Approximate) Telemetry Heart Rate EKG QRS Interval Telemetry Strip Reading 01/28/25 20:36 01/28/25 20:36 01/28/25 20:36 Temperature Temperature Source Pulse Rate Respiratory Rate Blood Pressure 135/80 122/74 106/65 Blood Pressure Mean Blood Pressure Location Left Arm Left Arm Blood Pressure Position Supine Sitting Standing O2 Sat by Pulse Oximetry Oxygen Delivery Method Weight Telemetry Type Telemetry Monitoring Irregular Telemetry Rate (Approximate) Telemetry Heart Rate EKG QRS Interval Telemetry Strip Reading 01/28/25 21:00 01/28/25 22:00 01/28/25 23:00 Temperature Temperature Source Pulse Rate Respiratory Rate Blood Pressure Blood Pressure Mean Blood Pressure Location Blood Pressure Position O2 Sat by Pulse Oximetry Oxygen Delivery Method Room Air Room Air Room Air Weight Telemetry Type Telemetry Monitoring Irregular Telemetry Rate (Approximate) Telemetry Heart Rate EKG QRS Interval Telemetry Strip Reading 01/29/25 00:00 01/29/25 01:00 01/29/25 01:00 Temperature Temperature Source Pulse Rate Respiratory Rate Blood Pressure Blood Pressure Mean Blood Pressure Location Blood Pressure Position O2 Sat by Pulse Oximetry Oxygen Delivery Method Room Air Room Air Weight Telemetry Type Remote Telemetry Telemetry Monitoring Continues Irregular Telemetry Rate (Approximate) Telemetry Heart Rate 82 EKG QRS Interval 0.12 H Telemetry Strip Reading AFIB 01/29/25 02:00 01/29/25 02:00 01/29/25 02:55 Temperature 97.5 F L Temperature Source Temporal Artery Scan Pulse Rate 92 Respiratory Rate 16 Blood Pressure 119/79 Blood Pressure Mean 92 Blood Pressure Location Left Arm Blood Pressure Position Supine O2 Sat by Pulse Oximetry 95 Oxygen Delivery Method Room Air Room Air Room Air Weight Telemetry Type Telemetry Monitoring Irregular Telemetry Rate (Approximate) Telemetry Heart Rate EKG QRS Interval Telemetry Strip Reading 01/29/25 04:00 01/29/25 05:00 01/29/25 05:28 Temperature 97.9 F Temperature Source Temporal Artery Scan Pulse Rate 84 Respiratory Rate 18 Blood Pressure 116/70 Blood Pressure Mean 85 Blood Pressure Location Left Arm Blood Pressure Position Sitting O2 Sat by Pulse Oximetry 95 Oxygen Delivery Method Room Air Room Air Room Air Weight Telemetry Type Telemetry Monitoring Irregular Telemetry Rate (Approximate) Telemetry Heart Rate EKG QRS Interval Telemetry Strip Reading 01/29/25 05:30 01/29/25 05:30 01/29/25 05:30 Temperature Temperature Source Pulse Rate Respiratory Rate Blood Pressure 107/69 116/70 92/59 L Blood Pressure Mean Blood Pressure Location Left Arm Left Arm Left Arm Blood Pressure Position Supine Sitting Standing O2 Sat by Pulse Oximetry Oxygen Delivery Method Weight Telemetry Type Telemetry Monitoring Irregular Telemetry Rate (Approximate) Telemetry Heart Rate EKG QRS Interval Telemetry Strip Reading 01/29/25 05:41 01/29/25 06:00 01/29/25 07:00 Temperature Temperature Source Pulse Rate Respiratory Rate Blood Pressure Blood Pressure Mean Blood Pressure Location Blood Pressure Position O2 Sat by Pulse Oximetry Oxygen Delivery Method Room Air Room Air Weight 51 kg Telemetry Type Telemetry Monitoring Irregular Telemetry Rate (Approximate) Telemetry Heart Rate EKG QRS Interval Telemetry Strip Reading 01/29/25 07:00 01/29/25 08:00 01/29/25 08:17 Temperature Temperature Source Pulse Rate 84 Respiratory Rate Blood Pressure 98/55 L Blood Pressure Mean 69 Blood Pressure Location Right Arm Blood Pressure Position O2 Sat by Pulse Oximetry Oxygen Delivery Method Room Air Room Air Weight Telemetry Type Remote Telemetry Telemetry Monitoring Continues Irregular Telemetry Rate (Approximate) 80-90 BPM Telemetry Heart Rate 89 EKG QRS Interval 0.08 Telemetry Strip Reading A fib Lab Results Lab Results: Lab Results: Last 24 Hours 01/29/25 05:36 WBC 8.06 RBC 4.65 Hgb 13.8 Hct 45.1 MCV 97.0 MCH 29.7 MCHC 30.6 L RDW Coeff of Lloyd 15.4 H Plt Count 238 Immature Gran % (Auto) 0.4 Neut % (Auto) 52.4 Lymph % (Auto) 33.3 Graham % (Auto) 8.2 Eos % (Auto) 5.0 Baso % (Auto) 0.7 Neut # (Auto) 4.2 Lymph # (Auto) 2.7 Graham # (Auto) 0.7 Eos # (Auto) 0.4 Baso # (Auto) 0.1 Immature Gran # (Auto) 0.0 Sodium 140.5 Potassium 3.67 Chloride 100.2 Carbon Dioxide 29.1 Anion Gap 14.87 BUN 25.7 H Creatinine 1.31 H Estimated GFR (MDRD) 38.00 BUN/Creatinine Ratio 19.61 Glucose 96.2 Calcium 9.47 Total Bilirubin 0.79 AST 29.6 ALT 18.6 Alkaline Phosphatase 79.1 Total Protein 7.19 Albumin 4.00 Globulin 3.19 Albumin/Globulin Ratio 1.25 Additional Comments Additional Comments: I have independently reviewed and interpreted the labs/EKGs/imaging ordered during this hospital stay. I have reviewed outside records that are available in our EMR that pertain to medical stay including imaging/notes/labs from previous visits. Active Medications Active Medications: Medications Generic Name Dose Route Start Last Admin Trade Name Freq PRN Reason Stop Dose Admin Acetaminophen 650 mg 01/27/25 19:42 Acetaminophen 325 Mg Tablet PO Q4H PRN Mild Pain Apixaban 2.5 mg 01/27/25 21:50 01/29/25 08:19 Apixaban 5 Mg Tab PO 2.5 mg BID INDIRA Administration Cholecalciferol 1,000 unit 01/29/25 09:00 01/29/25 08:18 Cholecalciferol (Vitamin D3) 1,000 Unit (25 Mcg) Tablet PO 1,000 unit DAILY INDIRA Administration Dronedarone 400 mg 01/28/25 09:00 01/28/25 09:50 Dronedarone Hydrochloride 400 Mg Tablet PO Not Given On Hold: 01/28/25 09:44 BID INDIRA Metoprolol Succinate 12.5 mg 01/29/25 09:00 01/29/25 08:18 Metoprolol Succinate 25 Mg Tab.Er.24h PO 12.5 mg DAILY INDIRA Administration Midodrine 5 mg 01/29/25 08:00 01/29/25 08:18 Midodrine Hcl 5 Mg Tablet PO 5 mg 0800,1200,1600 INDIRA Administration Pantoprazole Sodium 40 mg 01/28/25 07:30 01/29/25 05:21 Pantoprazole Sodium 40 Mg Tablet.Dr PO 40 mg QDAC2 INDIRA Administration Sodium Bicarbonate 650 mg 01/28/25 15:00 01/29/25 08:18 Sodium Bicarbonate 650 Mg Tablet PO 650 mg TID INDIRA Administration Sodium Chloride 1 syr 01/27/25 21:00 01/29/25 05:21 0.9% Sodium Chloride 10 Ml Disp.Syrin IVF 1 syr Q8HR INDIRA Administration Venlafaxine HCl 37.5 mg 01/28/25 09:00 01/29/25 08:18 Venlafaxine Hcl 37.5 Mg Cap.Er.24h PO 37.5 mg DAILY IDNIRA Administration Plan Plan: 1. Afib RVR - feel that multaq is not controlling afib rvr - holding at this time, decreased metoprolol succinate to 12.5 mg due to hypotension yesterday, telemetry 2. Combined CHF - do not feel patient is in exacerbation, appears euvolemic, initially started diuresis based on ER providers description of patient, I&O, daily weight, last echo 2022 with EF >70% consistent with hyperdynamic systolic function 3. Frequent Falls - feel this is due to uncontrolled afib and resulting in syncope, pt/ot to eval and treat, patient would likely benefit from further rehab due to 2 hospitalizations in less than a month. 4. Syncope - orthostatic vitals Q8H, restarted midodrine yesterday due to mild orthostasis, chilango [place], work-up completed at [facility] on 01/03 negative for other etiology. 5. GERD - chronic, continue home medications 6. CKD stage 3 - stable, continue home medications DVT Prophylaxis: Bao Review Statement Review Statement: I have personally discussed and reviewed the patient's visit/currently labs/imaging/decision making with Dr. Stark, my supervising attending. Greater that 50 minutes spent with patient, 50% of the time spent with this patient was devoted to counseling and coordination of care.
[2025-01-30 05:38] LABS: IMMATURE GRANULOCYTE # (AUTO) 0.0 (0.0-1.0); IMMATURE GRANULOCYTE % (AUTO) 0.2 % (0.0-5.0); RDW COEFFICIENT OF VARIATION 15.6 % (11.6-14.8)
[2025-01-30 05:53] LABS: CREATININE 1.15 mg/dL (0.60-1.30)
--- NOTE | 2025-01-30 11:11 | PCM.PROG ---
Date/Time Seen Date Seen by Provider: 01/30/25 Time Seen by Provider: 08:30 Provider [facility] Chief Complaint Chief Complaint: HEART FAILURE EXACERBATION Objective Appearance: Positive No Apparent Distress and Alert and Oriented x3 Chest/Lungs: Positive Symmetrical With Equal Breath Sounds, Clear to A uscultation Bilaterally and Good Air Movement all 4 Lung Bryant; Negative Rales, Rhonci or Wheezes Heart: Positive Pulses Normal and Irregular Rhythm; Negative Tachycardia or B racycardia GI/: Positive Soft, Nontender, Bowel Sounds Normal and No Distention Musculoskeletal: Positive Not Examined Neurological: Positive Sensation Intact, Motor intact, Reflexes Intact, Alert, Oriented and Other (generalized weakness, deconditioned) Vital Signs Vital Signs: Vital Signs: Last 24 Hours 01/29/25 11:43 01/29/25 13:00 01/29/25 13:00 Temperature Temperature Source Pulse Rate Respiratory Rate Blood Pressure Blood Pressure Mean Blood Pressure Location Blood Pressure Position O2 Sat by Pulse Oximetry Oxygen Delivery Method Room Air Room Air Weight Telemetry Type Remote Telemetry Telemetry Monitoring Continues Irregular Telemetry Rate (Approximate) 80-90 BPM Telemetry Heart Rate 82 EKG QRS Interval 0.07 Telemetry Strip Reading 01/29/25 14:00 01/29/25 14:00 01/29/25 14:23 Temperature 96.7 F L Temperature Source Temporal Artery Scan Pulse Rate 84 Respiratory Rate 18 Blood Pressure 121/67 Blood Pressure Mean 85 Blood Pressure Location Right Arm Blood Pressure Position Supine O2 Sat by Pulse Oximetry 95 Oxygen Delivery Method Room Air Room Air Room Air Weight Telemetry Type Telemetry Monitoring Irregular Telemetry Rate (Approximate) Telemetry Heart Rate EKG QRS Interval Telemetry Strip Reading 01/29/25 14:54 01/29/25 14:55 01/29/25 14:57 Temperature Temperature Source Pulse Rate 84 81 84 Respiratory Rate Blood Pressure 121/67 133/80 132/76 Blood Pressure Mean Blood Pressure Location Right Arm Right Arm Right Arm Blood Pressure Position Supine Sitting Standing O2 Sat by Pulse Oximetry Oxygen Delivery Method Weight Telemetry Type Telemetry Monitoring Irregular Telemetry Rate (Approximate) Telemetry Heart Rate EKG QRS Interval Telemetry Strip Reading 01/29/25 15:55 01/29/25 16:51 01/29/25 18:00 Temperature 97.3 F L Temperature Source Temporal Artery Scan Pulse Rate 77 Respiratory Rate 14 Blood Pressure 117/75 Blood Pressure Mean 89 Blood Pressure Location Left Arm Blood Pressure Position Supine O2 Sat by Pulse Oximetry 95 Oxygen Delivery Method Room Air Room Air Room Air Weight Telemetry Type Telemetry Monitoring Irregular Telemetry Rate (Approximate) Telemetry Heart Rate EKG QRS Interval Telemetry Strip Reading 01/29/25 18:00 01/29/25 19:00 01/29/25 19:00 Temperature Temperature Source Pulse Rate Respiratory Rate Blood Pressure Blood Pressure Mean Blood Pressure Location Blood Pressure Position O2 Sat by Pulse Oximetry Oxygen Delivery Method Room Air Room Air Weight Telemetry Type Remote Telemetry Telemetry Monitoring Continues Irregular Telemetry Rate (Approximate) Telemetry Heart Rate 79 EKG QRS Interval 0.10 Telemetry Strip Reading A-FIB 01/29/25 20:00 01/29/25 20:00 01/29/25 21:00 Temperature Temperature Source Pulse Rate Respiratory Rate Blood Pressure Blood Pressure Mean Blood Pressure Location Blood Pressure Position O2 Sat by Pulse Oximetry Oxygen Delivery Method Room Air Room Air Room Air Weight Telemetry Type Telemetry Monitoring Irregular Telemetry Rate (Approximate) Telemetry Heart Rate EKG QRS Interval Telemetry Strip Reading 01/29/25 21:00 01/29/25 21:28 01/29/25 21:29 Temperature 97.5 F L Temperature Source Temporal Artery Scan Pulse Rate 72 Respiratory Rate 16 Blood Pressure 121/69 121/69 125/75 Blood Pressure Mean 86 Blood Pressure Location Left Arm Left Arm Left Arm Blood Pressure Position Supine Supine Sitting O2 Sat by Pulse Oximetry 95 Oxygen Delivery Method Room Air Weight Telemetry Type Telemetry Monitoring Irregular Telemetry Rate (Approximate) Telemetry Heart Rate EKG QRS Interval Telemetry Strip Reading 01/29/25 21:29 01/29/25 22:00 01/29/25 23:00 Temperature Temperature Source Pulse Rate Respiratory Rate Blood Pressure 125/65 Blood Pressure Mean Blood Pressure Location Left Arm Blood Pressure Position Standing O2 Sat by Pulse Oximetry Oxygen Delivery Method Room Air Room Air Weight Telemetry Type Telemetry Monitoring Irregular Telemetry Rate (Approximate) Telemetry Heart Rate EKG QRS Interval Telemetry Strip Reading 01/30/25 00:00 01/30/25 01:00 01/30/25 01:00 Temperature Temperature Source Pulse Rate Respiratory Rate Blood Pressure Blood Pressure Mean Blood Pressure Location Blood Pressure Position O2 Sat by Pulse Oximetry Oxygen Delivery Method Room Air Room Air Weight Telemetry Type Remote Telemetry Telemetry Monitoring Continues Irregular Telemetry Rate (Approximate) Telemetry Heart Rate 91 EKG QRS Interval 0.09 Telemetry Strip Reading A-FIB 01/30/25 02:00 01/30/25 02:00 01/30/25 03:00 Temperature Temperature Source Pulse Rate Respiratory Rate Blood Pressure 125/62 Blood Pressure Mean Blood Pressure Location Left Arm Blood Pressure Position Supine O2 Sat by Pulse Oximetry Oxygen Delivery Method Room Air Room Air Weight Telemetry Type Telemetry Monitoring Irregular Telemetry Rate (Approximate) Telemetry Heart Rate EKG QRS Interval Telemetry Strip Reading 01/30/25 04:00 01/30/25 05:00 01/30/25 05:36 Temperature 97.5 F L Temperature Source Temporal Artery Scan Pulse Rate 86 Respiratory Rate 16 Blood Pressure 125/62 Blood Pressure Mean 83 Blood Pressure Location Left Arm Blood Pressure Position Supine O2 Sat by Pulse Oximetry 95 Oxygen Delivery Method Room Air Room Air Room Air Weight Telemetry Type Telemetry Monitoring Irregular Telemetry Rate (Approximate) Telemetry Heart Rate EKG QRS Interval Telemetry Strip Reading 01/30/25 05:38 01/30/25 05:38 01/30/25 05:42 Temperature Temperature Source Pulse Rate Respiratory Rate Blood Pressure 99/50 L 100/47 L Blood Pressure Mean Blood Pressure Location Left Arm Left Arm Blood Pressure Position Sitting Standing O2 Sat by Pulse Oximetry Oxygen Delivery Method Weight 51.2 kg Telemetry Type Telemetry Monitoring Irregular Telemetry Rate (Approximate) Telemetry Heart Rate EKG QRS Interval Telemetry Strip Reading 01/30/25 06:00 01/30/25 07:00 01/30/25 07:00 Temperature Temperature Source Pulse Rate Respiratory Rate Blood Pressure Blood Pressure Mean Blood Pressure Location Blood Pressure Position O2 Sat by Pulse Oximetry Oxygen Delivery Method Room Air Room Air Weight Telemetry Type Remote Telemetry Telemetry Monitoring Continues Irregular Telemetry Rate (Approximate) Telemetry Heart Rate 78 EKG QRS Interval 0.09 Telemetry Strip Reading AFIB 01/30/25 08:00 01/30/25 09:00 01/30/25 10:00 Temperature Temperature Source Pulse Rate Respiratory Rate Blood Pressure Blood Pressure Mean Blood Pressure Location Blood Pressure Position O2 Sat by Pulse Oximetry Oxygen Delivery Method Room Air Room Air Room Air Weight Telemetry Type Telemetry Monitoring Irregular Telemetry Rate (Approximate) Telemetry Heart Rate EKG QRS Interval Telemetry Strip Reading 01/30/25 10:00 Temperature 96.4 F L Temperature Source Temporal Artery Scan Pulse Rate 76 Respiratory Rate 14 Blood Pressure 98/52 L Blood Pressure Mean 67 Blood Pressure Location Left Arm Blood Pressure Position O2 Sat by Pulse Oximetry 95 Oxygen Delivery Method Room Air Weight Telemetry Type Telemetry Monitoring Irregular Telemetry Rate (Approximate) Telemetry Heart Rate EKG QRS Interval Telemetry Strip Reading Lab Results Lab Results: Lab Results: Last 24 Hours 01/30/25 05:23 WBC 8.07 RBC 4.35 Hgb 13.0 Hct 41.9 MCV 96.3 MCH 29.9 MCHC 31.0 L RDW Coeff of Lloyd 15.6 H Plt Count 239 Immature Gran % (Auto) 0.2 Neut % (Auto) 64.6 Lymph % (Auto) 20.6 [place] % (Auto) 8.9 Eos % (Auto) 5.2 Baso % (Auto) 0.5 Neut # (Auto) 5.2 Lymph # (Auto) 1.7 [place] # (Auto) 0.7 Eos # (Auto) 0.4 Baso # (Auto) 0.0 Immature Gran # (Auto) 0.0 Sodium 139.3 Potassium 4.09 Chloride 101.0 Carbon Dioxide 29.6 Anion Gap 12.79 BUN 22.5 H Creatinine 1.15 Estimated GFR (MDRD) 44.00 BUN/Creatinine Ratio 19.56 Glucose 92.2 Calcium 9.36 Total Bilirubin 0.69 AST 26.9 ALT 17.2 Alkaline Phosphatase 86.3 Total Protein 6.39 Albumin 3.60 Globulin 2.79 Albumin/Globulin Ratio 1.29 Additional Comments Additional Comments: I have independently reviewed and interpreted the labs/EKGs/imaging ordered during this hospital stay. I have reviewed outside records that are available in our EMR that pertain to medical stay including imaging/notes/labs from previous visits. Active Medications Active Medications: Medications Generic Name Dose Route Start Last Admin Trade Name Freq PRN Reason Stop Dose Admin Acetaminophen 650 mg 01/27/25 19:42 Acetaminophen 325 Mg Tablet PO Q4H PRN Mild Pain Apixaban 2.5 mg 01/27/25 21:50 01/30/25 08:37 Apixaban 5 Mg Tab PO 2.5 mg BID INDIRA Administration Cholecalciferol 1,000 unit 01/29/25 09:00 01/30/25 08:37 Cholecalciferol (Vitamin D3) 1,000 Unit (25 Mcg) Tablet PO 1,000 unit DAILY INDIRA Administration Dronedarone 400 mg 01/28/25 09:00 01/28/25 09:50 Dronedarone Hydrochloride 400 Mg Tablet PO Not Given On Hold: 01/28/25 09:44 BID INDIRA Metoprolol Succinate 12.5 mg 01/29/25 09:00 01/30/25 08:36 Metoprolol Succinate 25 Mg Tab.Er.24h PO 12.5 mg DAILY INDIRA Administration Midodrine 5 mg 01/29/25 08:00 01/30/25 08:36 Midodrine Hcl 5 Mg Tablet PO 5 mg 0800,1200,1600 INDIRA Administration Pantoprazole Sodium 40 mg 01/28/25 07:30 01/30/25 05:25 Pantoprazole Sodium 40 Mg Tablet.Dr PO 40 mg QDAC2 INDIRA Administration Sodium Bicarbonate 650 mg 01/28/25 15:00 01/30/25 08:37 Sodium Bicarbonate 650 Mg Tablet PO 650 mg TID INDIRA Administration Sodium Chloride 1 syr 01/27/25 21:00 01/30/25 05:24 0.9% Sodium Chloride 10 Ml Disp.Syrin IVF 1 syr Q8HR INDIRA Administration Venlafaxine HCl 37.5 mg 01/28/25 09:00 01/30/25 08:37 Venlafaxine Hcl 37.5 Mg Cap.Er.24h PO 37.5 mg DAILY INDIRA Administration Plan Plan: 1. Afib RVR - Resolved, tolerating metoprolol succinate 12.5 mg daily, telemetry 2. Combined CHF - do not feel patient is in exacerbation, appears euvolemic, initially started diuresis based on ER providers description of patient, I&O, daily weight, last echo 2022 with EF >70% consistent with hyperdynamic systolic function 3. Frequent Falls - feel this is due to uncontrolled afib and resulting in syncope, pt/ot to eval and treat, patient would likely benefit from further rehab due to 2 hospitalizations in less than a month. 4. Syncope - orthostatic vitals Q8H, continue midodrine, chilango [place], work-up completed at [facility] on 01/03 negative for other etiology. 5. GERD - chronic, continue home medications 6. CKD stage 3 - stable, continue home medications DVT Prophylaxis: Bao Dispo: Awaiting insurance approval for swingbed. Review Statement Review Statement: I have personally discussed and reviewed the patient's visit/currently labs/imaging/decision making with Dr. Stark, my supervising attending. Greater that 50 minutes spent with patient, 50% of the time spent with this patient was devoted to counseling and coordination of care.
[2025-01-30] MEDS: CALMOSEPTINE OINTMENT TP PRN (17:19)
[2025-01-31 05:35] LABS: IMMATURE GRANULOCYTE # (AUTO) 0.0 (0.0-1.0); IMMATURE GRANULOCYTE % (AUTO) 0.2 % (0.0-5.0); RDW COEFFICIENT OF VARIATION 15.5 % (11.6-14.8)
[2025-01-31 05:53] LABS: CREATININE 1.06 mg/dL (0.60-1.30)
--- NOTE | 2025-01-31 14:23 | PCM.PROG ---
Date/Time Seen Date Seen by Provider: 01/31/25 Time Seen by Provider: 08:50 Provider Provider: JIAN MONZON PA-C, [facility] Chief Complaint Chief Complaint: HEART FAILURE EXACERBATION Subjective Subjective: Patient states she's overall feeling better. She denies any dizziness or lightheadedness with standing/ambulating. Took a shower this morning with nursing staff and is wore out. Denies cp or sob. HR has been controlled. Objective Appearance: Positive No Apparent Distress and Alert and Oriented x3 Chest/Lungs: Positive Symmetrical With Equal Breath Sounds, Clear to Auscultation Bilaterally and Good Air Movement all 4 Lung Bryant; Negative Rales, Rhonci or Wheezes Heart: Positive Pulses Normal and Irregular Rhythm; Negative Tachycardia or Bracycardia GI/: Positive Soft, Nontender, Bowel Sounds Normal and No Distention Musculoskeletal: Positive Not Examined Neurological: Positive Sensation Intact, Motor intact, Alert, Oriented and Other (generalized weakness, deconditioned) Vital Signs Vital Signs: Vital Signs: Last 24 Hours 01/30/25 15:00 01/30/25 16:00 01/30/25 16:58 Temperature Temperature Source Pulse Rate Respiratory Rate Blood Pressure Blood Pressure Mean Blood Pressure Location Blood Pressure Position O2 Sat by Pulse Oximetry Oxygen Delivery Method Room Air Room Air Room Air Weight Telemetry Type Telemetry Monitoring Telemetry Heart Rate EKG QRS Interval Telemetry Strip Reading 01/30/25 17:33 01/30/25 18:00 01/30/25 19:00 Temperature 97.3 F L Temperature Source Temporal Artery Scan Pulse Rate 71 Respiratory Rate 14 Blood Pressure 136/79 Blood Pressure Mean 98 Blood Pressure Location Right Arm Blood Pressure Position O2 Sat by Pulse Oximetry 95 Oxygen Delivery Method Room Air Room Air Room Air Weight Telemetry Type Telemetry Monitoring Telemetry Heart Rate EKG QRS Interval Telemetry Strip Reading 01/30/25 19:00 01/30/25 20:00 01/30/25 20:00 Temperature Temperature Source Pulse Rate Respiratory Rate Blood Pressure Blood Pressure Mean Blood Pressure Location Blood Pressure Position O2 Sat by Pulse Oximetry Oxygen Delivery Method Room Air Room Air Weight Telemetry Type Remote Telemetry Telemetry Monitoring Continues Telemetry Heart Rate 78 EKG QRS Interval 0.09 Telemetry Strip Reading A-FIB 01/30/25 21:00 01/30/25 22:00 01/30/25 22:00 Temperature 97.1 F L Temperature Source Oral Pulse Rate 79 Respiratory Rate 16 Blood Pressure 121/67 Blood Pressure Mean 85 Blood Pressure Location Right Arm Blood Pressure Position Supine O2 Sat by Pulse Oximetry 95 Oxygen Delivery Method Room Air Room Air Room Air Weight Telemetry Type Telemetry Monitoring Telemetry Heart Rate EKG QRS Interval Telemetry Strip Reading 01/30/25 23:00 01/31/25 00:00 01/31/25 01:00 Temperature Temperature Source Pulse Rate Respiratory Rate Blood Pressure Blood Pressure Mean Blood Pressure Location Blood Pressure Position O2 Sat by Pulse Oximetry Oxygen Delivery Method Room Air Room Air Weight Telemetry Type Remote Telemetry Telemetry Monitoring Continues Telemetry Heart Rate 76 EKG QRS Interval 0.11 H Telemetry Strip Reading A-FIB 01/31/25 01:00 01/31/25 02:00 01/31/25 02:00 Temperature 97.6 F Temperature Source Temporal Artery Scan Pulse Rate 69 Respiratory Rate 16 Blood Pressure 134/66 Blood Pressure Mean 88 Blood Pressure Location Left Arm Blood Pressure Position Supine O2 Sat by Pulse Oximetry 91 L Oxygen Delivery Method Room Air Room Air Room Air Weight Telemetry Type Telemetry Monitoring Telemetry Heart Rate EKG QRS Interval Telemetry Strip Reading 01/31/25 03:00 01/31/25 04:00 01/31/25 05:00 Temperature Temperature Source Pulse Rate Respiratory Rate Blood Pressure Blood Pressure Mean Blood Pressure Location Blood Pressure Position O2 Sat by Pulse Oximetry Oxygen Delivery Method Room Air Room Air Room Air Weight Telemetry Type Telemetry Monitoring Telemetry Heart Rate EKG QRS Interval Telemetry Strip Reading 01/31/25 05:00 01/31/25 05:12 01/31/25 05:13 Temperature 97.1 F L Temperature Source Temporal Artery Scan Pulse Rate 70 Respiratory Rate 16 Blood Pressure 130/61 Blood Pressure Mean 84 Blood Pressure Location Left Arm Blood Pressure Position Supine O2 Sat by Pulse Oximetry 91 L Oxygen Delivery Method Room Air Room Air Weight 52.2 kg Telemetry Type Telemetry Monitoring Telemetry Heart Rate EKG QRS Interval Telemetry Strip Reading 01/31/25 05:52 01/31/25 07:00 01/31/25 07:52 Temperature Temperature Source Pulse Rate Respiratory Rate Blood Pressure Blood Pressure Mean Blood Pressure Location Blood Pressure Position O2 Sat by Pulse Oximetry Oxygen Delivery Method Room Air Room Air Room Air Weight Telemetry Type Telemetry Monitoring Telemetry Heart Rate EKG QRS Interval Telemetry Strip Reading 01/31/25 08:00 01/31/25 08:36 01/31/25 09:55 Temperature Temperature Source Pulse Rate Respiratory Rate Blood Pressure Blood Pressure Mean Blood Pressure Location Blood Pressure Position O2 Sat by Pulse Oximetry Oxygen Delivery Method Room Air Room Air Room Air Weight Telemetry Type Telemetry Monitoring Telemetry Heart Rate EKG QRS Interval Telemetry Strip Reading 01/31/25 09:55 01/31/25 11:00 01/31/25 11:29 Temperature 97.3 F L Temperature Source Temporal Artery Scan Pulse Rate 79 Respiratory Rate 16 Blood Pressure 137/81 Blood Pressure Mean 99 Blood Pressure Location Left Arm Blood Pressure Position Supine O2 Sat by Pulse Oximetry 94 L Oxygen Delivery Method Room Air Room Air Room Air Weight Telemetry Type Telemetry Monitoring Telemetry Heart Rate EKG QRS Interval Telemetry Strip Reading Lab Results Lab Results: Lab Results: Last 24 Hours 01/31/25 05:23 WBC 6.47 RBC 4.39 Hgb 13.1 Hct 42.5 MCV 96.8 MCH 29.8 MCHC 30.8 L RDW Coeff of Lloyd 15.5 H Plt Count 219 Immature Gran % (Auto) 0.2 Neut % (Auto) 53.3 Lymph % (Auto) 31.4 [place] % (Auto) 8.3 Eos % (Auto) 6.0 Baso % (Auto) 0.8 Neut # (Auto) 3.5 Lymph # (Auto) 2.0 [place] # (Auto) 0.5 Eos # (Auto) 0.4 Baso # (Auto) 0.1 Immature Gran # (Auto) 0.0 Sodium 139.4 Potassium 4.08 Chloride 100.2 Carbon Dioxide 31.6 H Anion Gap 11.68 BUN 19.2 H Creatinine 1.06 Estimated GFR (MDRD) 49.00 BUN/Creatinine Ratio 18.11 Glucose 94.4 Calcium 9.38 Total Bilirubin 0.61 AST 22.3 ALT 16.0 Alkaline Phosphatase 84.4 Total Protein 6.41 Albumin 3.57 Globulin 2.84 Albumin/Globulin Ratio 1.25 Additional Comments Additional Comments: I have independently reviewed and interpreted the labs/EKGs/imaging ordered during this hospital stay. I have reviewed outside records that are available in our EMR that pertain to medical stay including imaging/notes/labs from previous visits. Active Medications Active Medications: Medications Generic Name Dose Route Start Last Admin Trade Name Freq PRN Reason Stop Dose Admin Acetaminophen 650 mg 01/27/25 19:42 Acetaminophen 325 Mg Tablet PO Q4H PRN Mild Pain Apixaban 2.5 mg 01/27/25 21:50 01/31/25 08:42 Apixaban 5 Mg Tab PO 2.5 mg BID INDIRA Administration Calamine/Phenol 1 applic 01/30/25 16:16 01/30/25 17:19 Menthol/Zinc Oxide 113 Gm Ointment TP 1 applic PRN PRN Administration barrier Cholecalciferol 1,000 unit 01/29/25 09:00 01/31/25 08:43 Cholecalciferol (Vitamin D3) 1,000 Unit (25 Mcg) Tablet PO 1,000 unit DAILY INDIRA Administration Dronedarone 400 mg 01/28/25 09:00 01/31/25 08:42 Dronedarone Hydrochloride 400 Mg Tablet PO 400 mg BID INDIRA Administration Metoprolol Succinate 12.5 mg 01/29/25 09:00 01/31/25 08:43 Metoprolol Succinate 25 Mg Tab.Er.24h PO 12.5 mg DAILY INDIRA Administration Midodrine 5 mg 01/29/25 08:00 01/31/25 08:43 Midodrine Hcl 5 Mg Tablet PO 5 mg 0800,1200,1600 INDIRA Administration Pantoprazole Sodium 40 mg 01/28/25 07:30 01/31/25 05:20 Pantoprazole Sodium 40 Mg Tablet.Dr PO 40 mg QDAC2 INDIRA Administration Sodium Bicarbonate 650 mg 01/28/25 15:00 01/31/25 08:43 Sodium Bicarbonate 650 Mg Tablet PO 650 mg TID INDIRA Administration Sodium Chloride 1 syr 01/27/25 21:00 01/31/25 05:20 0.9% Sodium Chloride 10 Ml Disp.Syrin IVF 1 syr Q8HR INDIRA Administration Venlafaxine HCl 37.5 mg 01/28/25 09:00 01/31/25 08:43 Venlafaxine Hcl 37.5 Mg Cap.Er.24h PO 37.5 mg DAILY INDIRA Administration Plan Plan: 1. Afib RVR - Resolved, tolerating metoprolol succinate 12.5 mg daily, multaq resumed, telemetry 2. Combined CHF - I&O, daily weight, last echo 2022 with EF >70% consistent with hyperdynamic systolic function 3. Frequent Falls - feel this is due to uncontrolled afib and resulting in syncope, pt/ot to eval and treat, patient would likely benefit from further rehab due to 2 hospitalizations in less than a month. 4. Syncope, recent - continue midodrine, chilango hose, work-up completed at [facility] on 01/03 negative for other etiology. 5. Orthostatic hypotension - improved, less symptomatic, chilango hose, midodrine 6. GERD - chronic, continue home medications 7. CKD stage 3 - stable, continue home medications DVT Prophylaxis: Bao [place]: Awaiting insurance approval for swingbed. Review Statement Review Statement: I have personally discussed and reviewed the patient's visit/currently labs/imaging/decision making with Dr. Stark, my supervising attending. Greater that 50 minutes spent with patient, 50% of the time spent with this patient was devoted to counseling and coordination of care.
--- NOTE | 2025-02-01 13:02 | DCSUM ---
Admission Date Admission Date: 01/27/25 Discharge Date Discharge Date: 02/01/25 Admission Diagnosis Admission Diagnosis: 1. Afib RVR Discharge Diagnosis Discharge Diagnosis: 1. Afib RVR - Resolved 2. History of hypertrophic obstructive cardiomyopathy 3. Frequent Falls 4. Syncope, recent 5. Orthostatic hypotension 6. GERD 7. CKD stage 3 Hospital Provider Hospital Provider: JIAN MONZON PA-C, [facility] Primary Care Physician Primary Care Physician: ESTEPHANIE MERCHANT Summary of History and Physical Summary of History and Physical: 89 yo female with pmh of combined CHF, afib, htn, and HOCM presented to the ER following a fall. Patient states she has been having multiple falls at home and does not recall when they happen. Denies any injury but is sore this am. Patient is new to the area from [place] and was at Dr. Merchant's office to be seen for new patient visit and was sent to the ER. Patient was found to have HR of 136. BNP elevated at 2420 (unsure of baseline). D-dimer elevated. CTA obtained showing evidence of right sided heart failure. Denies any sob or edema at home. Granddaughter who is her caregiver at this time is an RN and reports that she only takes lasix as needed and has not taken it for quite some time. Daily weights have been normal. Of note, patient was admitted to [facility] on 01/03/25-01/07/25 for syncope. Found to have KETURAH and orthostasis. Metoprolol held during that visit and patient was also started on midodrine due to continued orthostasis despite hydration. Metoprolol continued on discharge. Patient was then discharged to [facility] for rehab. Granddaughter reports she did not receive the therapy she needed and continues to be weak at this time thus causing the fall and repeat admission in less than a month. This am patient's HR jumped to 130s-150s in Afib RVR. Patient became symptomatic with dizziness and chest pain. She was given a dose of lopressor 2.5 mg IVP and HR as normalized. Hospital Course Subjective: Patient's a fib RVR was resolved with IV metoprolol. Started back on metoprolol tartrate but became hypotensive. Switched to metoprolol succinate 12.5 mg daily. Continued on multaq. She has since had normal BP and HR has been consistently in 60s-70s in A fib. No more episodes of a fib RVR occurred. Patient was not felt to be overloaded therefore she was not diuresed any further. She was weak and with recent hospitalization, felt skilled rehab would be of benefit. However she has done well with therapy, mostly SBA/independent with PT and OT. Insurance not approving at this time. Discharge was delayed while awaiting insurance decision for skilled rehab. She has otherwise been stable, normal labs and vitals. Has no complaints. Will discharge home with granddaughter with home health therapy. Ultimate goal is to move to [facility] with son, although the travel may be too much for her at this time. Appearance: Pleasant, No Apparent Distress and Alert HEENT: MMM and Supple CVS: Other (irregularly irregular, rate controlled ) Abdomen: Soft, Non-Tender and No Distention Respiratory: No Accessory Muscle Use Extremities: No Edema Vital Signs: Most Recent Vital Signs Temperature 96.6 F L 02/01/25 10:00 Temperature Source Temporal Artery Scan 02/01/25 10:00 Temperature Source Infrared 01/27/25 14:22 Pulse Rate 67 02/01/25 10:00 Respiratory Rate 18 02/01/25 10:00 Blood Pressure 122/70 02/01/25 10:00 Blood Pressure Mean 87 02/01/25 10:00 Blood Pressure Left Arm 153/95 01/27/25 20:13 Blood Pressure Location Left Arm 02/01/25 10:00 Blood Pressure Position Supine 02/01/25 10:00 O2 Sat by Pulse Oximetry 99 02/01/25 10:00 Oxygen Delivery Method Room Air 02/01/25 10:00 Height 5 ft 4 in 01/27/25 20:13 Weight 51.8 kg 02/01/25 05:29 Telemetry Type Remote Telemetry 02/01/25 07:00 Telemetry Monitoring Continues 02/01/25 07:00 Irregular Telemetry Rate (Approximate) 60-70 BPM 02/01/25 07:00 Telemetry Heart Rate 66 02/01/25 07:00 EKG IN Interval 0.13 01/30/25 13:00 EKG QRS Interval 0.08 02/01/25 07:00 Telemetry Strip Reading AFIB/FLUTTER 02/01/25 07:00 Imaging: EXAM: CHEST RADIOGRAPH (1 VIEW) TECHNIQUE: Frontal Chest Radiograph. HISTORY: Chest pain. COMPARISON: None FINDINGS: Lines, Tubes, Devices: Left-sided dual chamber pacemaker. Thoracic spinal cord stimulator Lungs and Pleura: No focal consolidation. No pleural effusion. No pneumothorax. No pulmonary edema. Cardiomediastinum: Normal cardiomediastinal silhouette. Moderate aortic calcifications. Bones/Soft Tissues: Multiple remote left rib fractures. No soft tissue abnormality. Upper Abdomen: Within normal limits. IMPRESSION: No acute radiographic abnormality. EXAM: CHEST CTA WITH CONTRAST (PULMONARY ARTERY) HISTORY: Chest pain and shortness of breath. TECHNIQUE: CTA acquisition of the chest from the thoracic inlet to the upper abdomen following IV contrast administration timed to filling of the pulmonary artery. 3D/MIP/VR images were utilized. CT Dose Reduction Techniques Employed: Yes. IV Contrast: Administered. COMPARISON: None. FINDINGS: Pulmonary Embolism: Diagnostic quality: Adequate. Central (Main/Lobar/Interlobar): No embolus. Peripheral (Segmental/Subsegmental): No embolus. Right ventricle/Left ventricle ratio: Normal. Lines, Tubes, Devices: None. Lung Parenchyma and Airways: Central airways are patent without endobronchial lesion. Mild bronchiectasis. Course interstitial markings in the lower lobes consistent with scarring. No suspicious pulmonary nodule. Mild scattered groundglass densities. Pleural Space: No pleural effusion or thickening. No pneumothorax. Mediastinum and Maru: Thyroid gland is normal. No lymphadenopathy. Heart and Pericardium: There is no pericardial effusion or thickening. The heart is mildly enlarged. Vessels: The thoracic aorta is of normal caliber. The pulmonary trunk is enlarged measuring 3.7 cm. Heavy atherosclerotic vascular disease. Tortuosity. Bones: There is no fracture or lytic lesion. [id number] spondylosis and degenerative disc disease of the visualized lumbar spine. Spinal stimulation device in place. Mild levoscoliosis of the thoracic spine. Hemangioma of L3. Mild superior endplate central compression of L1. Soft Tissues: Spinal stimulation device battery pack in the left buttock soft tissues. Upper Abdomen: Multiple bilateral renal cortical cysts. Reflux of contrast into the inferior vena cava and hepatic veins. IMPRESSION: 1. Normal CT pulmonary angiogram with no evidence of pulmonary artery embolism. 2. Coarse interstitial markings in the lower lobes consistent with scarring. Mild scattered groundglass densities and bronchiectasis. 3. The pulmonary trunk is enlarged consistent with pulmonary hypertension. There is reflux of contrast into the inferior vena cava pulmonary veins consistent with right heart failure. 4. Moderate spondylosis and degenerative disc disease. 5. Renal cortical cysts. Discharge Instructions Discharge Planning: Discharge Planning > [address] Luiza Stark. Discharge Medications: Medications at Discharge (Home Meds & RX) apixaban 5 mg tablet (Eliquis) 2.5 mg PO BID 01/02/25 Multaq 400 mg PO BID 01/27/25 pantoprazole 40 mg tablet,delayed release 40 mg PO QAM 01/27/25 venlafaxine 37.5 mg capsule,extended release 24 hr 37.5 mg PO DAILY 01/27/25 acetaminophen 325 mg capsule 650 mg PO QID PRN fever or pain 01/28/25 cholecalciferol (vitamin D3) 25 mcg (1,000 unit) capsule 25 mcg PO DAILY 01/28/25 furosemide 40 mg tablet (Lasix) 20 mg PO DAILY PRN edema 01/28/25 midodrine 5 mg tablet 5 mg PO TID 01/28/25 metoprolol succinate 25 mg tablet,extended release 24 hr (Toprol XL) 12.5 mg (1/2 x 25 mg) PO DAILY #30 tabs 02/01/25 sodium bicarbonate 650 mg tablet 650 mg PO TID #90 tabs 02/01/25 Discharge Plan Discharge Discharge Orders: Discharge Patient (ONCE); Ordered 02/01/25 Ordered By: JIAN MONZON Activity Restrictions/Additional Instructions: DISCHARGE TO HOME DX: A FIB RVR PHARMACY: [facility] METOPROLOL CHANGED TO METOPROLOL SUCCINATE F/U WITH PCP RETURN WITH WORSENING SYMPTOMS ACTIVITY: HOME HEALTH, FALL PRECAUTIONS You have been referred to [facility]. They will be in contact with you to initiate care. If you have any questions or need to speak with them, their contact number is [phone] Instructions: A-fib (Atrial Fibrillation) (DC) Patient Disposition: HOME WITH FAMILY CARE Prescriptions: New metoprolol succinate [Toprol XL] 25 mg Tablet Extended Release 24 Hr 12.5 mg PO DAILY Qty: 30 0RF Continued Eliquis 5 mg tablet 2.5 mg PO BID Multaq 400 mg 400 mg PO BID pantoprazole 40 mg tablet,delayed release (DR/EC) 40 mg PO QAM venlafaxine 37.5 mg capsule,extended release 24hr 37.5 mg PO DAILY midodrine 5 mg tablet 5 mg PO TID Rx Instructions: do not give last dose of day after 6PM or within 4 hrs of bedtime furosemide [Lasix] 40 mg tablet 20 mg PO DAILY PRN (Reason: edema) cholecalciferol (vitamin D3) 25 mcg (1,000 unit) capsule 25 mcg PO DAILY acetaminophen 325 mg capsule 650 mg PO QID PRN (Reason: fever or pain) sodium bicarbonate 650 mg tablet 650 mg PO TID Qty: 90 0RF Discontinued metoprolol tartrate 25 mg tablet 12.5 mg PO BID Did you review [place] [employer] for ALL controlled substances?: Not Applicable Discussed opioids are addictive and Narcan is available by prescription or from pharmacy.: No Condition: Stable Referrals: ESTEPHANIE MERCHANT [Primary Care Provider, Family Practice] - 02/04/25 3:15 pm
[2025-02-01 15:04] VITALS: BP 103/52; PULSE 66; RESP 16; TEMP 97.1
== END 2025-02-01 20:00 | disposition home or self-care (01) | DRG 310 ==
LOC: MEDSURG B 14:14 → ED 14:14 → MEDSURG B 20:14
PROVIDERS: ADMIT Hospitalist; ATTEND Physician Assistant
DX: R55 Syncope and collapse; I50.9 Heart failure, unspecified; R29.6 Repeated falls; N18.30 Chronic kidney disease, stage 3 unspecified; I48.0 Paroxysmal atrial fibrillation; I95.1 Orthostatic hypotension; I48.91 Unspecified atrial fibrillation; K21.9 Gastro-esophageal reflux disease without esophagitis